=== PATIENT | female | born 1955 | race Caucasian/White ===

== ENCOUNTER 2020-12-17 07:52 | Outpatient (CLI) | payer MEDICARE, SELFPAY ==
[2020-12-17 08:37] LABS: Basophils Percent Auto 0.5 % (0.2-1.2); Eosinophils Absolute Auto 0.2 K/mm3 (0-0.3); Hematocrit 39.8 % (37.0-47.0); Hemoglobin 13.3 g/dL (12.0-15.0); Immature Granulocyte Absolute 0.01 K/mm3 (0.00-0.031); Immature Granulocyte Percent A 0.1 % (0-0.5); Lymphocytes Percent Auto 32.9 % (18.3-44.2); Mean Corpuscular HGB Conc 33.4 g/dl (32-36); Mean Corpuscular Volume 89.6 fl (80-100); Mean Platelet Volume 10.2 fl (7.4-10.4); Monocytes Absolute Auto 0.7 K/mm3 (0.1-0.6); Monocytes Percent Auto 9.2 % (2.6-8.5); Neutrophils Absolute Auto 4.1 K/mm3 (1.3-6.7); Neutrophils Percent Auto 54.3 % (45.5-73.1); Platelet Count Result 248 k/mm3 (150-375); Red Blood Count 4.44 M/mm3 (4.2-5.4); Red Cell Distribution Width 12.4 % (11.5-14.5); White Blood Count 7.6 K/mm3 (4.5-10.0)
[2020-12-17 08:49] LABS: Alanine Aminotransferase 19 U/L (4-35); Albumin Level 4.3 g/dL (3.5-5.1); Alkaline Phosphatase 86 U/L (38-126); Anion Gap 8 mmol/L (8-16); Aspartate Amino Transferase 28 U/L (14-36); Bilirubin,Total 0.5 mg/dL (0.2-1.3); Blood Urea Nitrogen 25 mg/dL (7-17); Calcium 9.1 mg/dL (8.4-10.2); Carbon Dioxide 27 mmol/L (22-30); Chloride 105 mmol/L (98-107); Cholesterol 174 mg/dL (0-200); Estimated Glomerular Filt Rate > 60; Glucose 94 mg/dL (65-110); HDL Direct 72 mg/dL; Potassium 4.7 mmol/L (3.4-5.0); Sodium 140 mmol/L (137-145); Triglycerides 61 mg/dL (<150)
[2020-12-17 09:00] LABS: LDL Cholesterol Direct 82 mg/dL
[2020-12-17 09:06] LABS: Free T4 Free Thyroxine < 0.07 ng/mL (0.78-2.19)
[2020-12-17 09:20] LABS: Thyroid Stimulating Hormone < 0.015 uIU/mL (0.465-4.680); Total Triiodothyronine (T3) 1.92 NG/ML (0.97-1.69)
[2020-12-22 23:39] LABS: Vitamin D 1,25 (OH)2 Total 27 pg/mL (18-72); Vitamin D2 1,25 (OH)2 <8 pg/mL; Vitamin D3 1,25 (OH)2 27 pg/mL
== END 2020-12-17 07:53 | disposition home or self-care (01) ==
PROVIDERS: PCP Family Medicine; Visit Provider Physician Assistant
DX: E55.9 Vitamin D deficiency, unspecified (principal); E03.9 Hypothyroidism, unspecified; E78.2 Mixed hyperlipidemia
CPT/HCPCS: 36415; 80053; 80061; 82652; 84439; 84443; 84480; 85025

== ENCOUNTER 2021-01-26 14:58 | Outpatient (CLI) | payer MEDICARE, SELFPAY ==
--- NOTE | ~2021-01-26 | MM_ITS ---
EXAMINATION: MM screening brii BI w levar HISTORY: Screening TECHNIQUE: Craniocaudal and mediolateral oblique 3-D tomosynthesis images were obtained and synthetic 2-D images were generated. CAD analysis was submitted and interpreted. COMPARISON: No prior mammogram is available for comparison at this institution. BREAST PARENCHYMAL COMPOSITION: The breasts are heterogeneously dense, which may obscure small masses . FINDINGS: There are multiple bilateral breast masses which are partially obscured by fibroglandular t issue. There are no suspicious calcifications or architectural distortion. IMPRESSION: 1. Multiple bilateral breast masses. 2. Bilateral complete breast ultrasound recommended. BI-RADS Category 0: Incomplete: Needs additional imaging evaluation. Reviewed, dictated and finalized at location A. CUTTER
== END 2021-01-26 14:59 | disposition home or self-care (01) ==
LOC: ANHIMG 15:01
PROVIDERS: PCP Family Medicine; Visit Provider Family Medicine
DX: Z12.31 Encounter for screening mammogram for malignant neoplasm of breast (principal); R92.8 Other abnormal and inconclusive findings on diagnostic imaging of breast
CPT/HCPCS: 77063; 77067

== ENCOUNTER 2021-02-04 09:07 | Outpatient (CLI) | payer MEDICARE, SELFPAY ==
--- NOTE | ~2021-02-04 | US_ITS ---
US breast BI complete 02/04/2021 09:48 Indication: Bilateral breast masses seen on recent mammogram. Procedure: High-resolution bilateral breast ultrasound Comparison: Screening mammogram dated 01/26/2021 Findings: There multiple bilateral breast cysts corresponding to the mammographic findings. Largest c yst in the right breast measures 1.4 cm at 9:00, 2 cm from the nipple and largest in the left breast measures 2.5 cm at 12:00, 5 cm from the nipple. No suspicious masses to suggest malignancy in either breast. Impression: 1: Bilateral breast cysts. No sonographic evidence for malignancy. Routine yearly screening mammogram and regular clinical breast examination are recommended. BI-RADS CATEGORY 2 - BENIGN FINDINGS Reviewed, dictated and finalized at location A. [employer]OR OF COLLECTIONS Impression: 1: Bilateral breast cysts. No sonographic evidence for malignancy. Routine yearly screening mammogram and regular clinical breast examination are recommended. BI-RADS CATEGORY 2 - BENIGN FINDINGS
== END 2021-02-04 09:08 | disposition home or self-care (01) ==
LOC: ANHIMG 09:09
PROVIDERS: PCP Family Medicine; Visit Provider Family Medicine
DX: N63.10 Unspecified lump in the right breast, unspecified quadrant (principal); N63.20 Unspecified lump in the left breast, unspecified quadrant; R92.8 Other abnormal and inconclusive findings on diagnostic imaging of breast; N60.02 Solitary cyst of left breast; N60.01 Solitary cyst of right breast
CPT/HCPCS: 76641

== ENCOUNTER 2021-02-15 12:54 | Outpatient (CLI) | payer MEDICARE, SELFPAY ==
--- NOTE | ~2021-02-15 | DEXA_ITS ---
Bone Density Report Name: TENNILLE RAMIREZ Age: 65 Sex: Female Ethnicity: White Date of : 1955 Indication: postmenopausal; Referring Provider: CIRO MCLEAN Study: Bone densitometry was performed. Exam Date: February 15, 2021 Accession number: [id number] Bone Density: Region BMD T-score Z-score Classification AP Spine (L1-L4) 0.902 -1.3 0.6 Osteopenia Femoral Neck (Left) 0.623 -2.0 -0.4 Osteopenia Total Hip (Left) 0.853 -0.7 0.6 Normal Total Hip Bilateral Avg 0.864 -0.7 0.7 Normal Femoral Neck (Right) 0.663 -1.7 -0.1 Osteopenia Total Hip (Right) 0.873 -0.6 0.7 Normal World Health Organization criteria for BMD impression classify patients as: Normal (T-score at or above -1.0), Osteopenia (T-score between -1.0 and -2.5), or Osteoporosis (T-score at or below -2.5). 10-year Fracture Risk(1): Major Osteoporotic Fracture 11% Hip Fracture 1.8% Reported Risk Factors: [place] (), Neck BMD=0.623, BMI=29.2 (1) FRAX(R) Version 3.08. Fracture probability calculated for an untreated patient. Fracture probability may be lower if the patient has received treatment. Clinical Information Provided by Patient: Patient maximum height was 62 Menopause Age: 49 Onset of menses at age 10 Number of children 1 Impression: The patient has low bone mass, based on the Left Femoral Neck T-score. The patient has an estimated ten-year risk of hip fracture of 1.8% and an estimated ten-year risk of major fracture of 11%, based on the WHO FRAX algorithm. Discussion: BONE DENSITY IS LOW AT ONE OR MORE SKELETAL SITES. This patient's lowest T-score is low at one or more skeletal sites. It meets the World Health Organization's (WHO) criteria for ?low bone mass? (T-score between -1.0 and -2.5). The patient's 10-year risk of fracture as calculated by FRAX is less than the threshold where pharmacological therapy is recommended by the National Osteoporosis Foundation (NOF). However, all treatment decisions require clinical judgment and consideration of individual patient factors, including patient preferences, comorbidities, previous drug use, risk factors not captured in the FRAX model (e.g., frailty, falls, vitamin D deficiency, increased bone turnover, interval significant decline in bone density) and possible under or overestimation of fracture risk by FRAX. The patient should follow a healthful lifestyle (good nutrition with adequate calcium and vitamin D, and appropriate weight-bearing exercise). Follow-Up: Consider repeating this study in 2 to 3 years to reassess this patient's status, or sooner if there is some new clinical indication. Reported by: EMILE on 02/15/2021 1:15:00 PM. Reviewed, dictated and finalized at location A. [facility]
== END 2021-02-15 12:55 | disposition home or self-care (01) ==
LOC: ANHIMG 12:55
PROVIDERS: PCP Family Medicine; Visit Provider Family Medicine
DX: Z78.0 Asymptomatic menopausal state (principal); M85.88 Other specified disorders of bone density and structure, other site; M85.852 Other specified disorders of bone density and structure, left thigh; M85.851 Other specified disorders of bone density and structure, right thigh
CPT/HCPCS: 77080

== ENCOUNTER → 2021-09-07 09:37 | Outpatient (CLI) | payer MEDICARE, SELFPAY ==
--- NOTE | ~2021-09-07 | MMUS_ITS ---
EXAMINATION: MM diagnostic brii LT w levar, US breast LT complete HISTORY: Palpable left breast abnormalities TECHNIQUE: Additional 3-D tomosynthesis images of the left breast were performed and synthetic 2-D im ages were generated. CAD analysis was submitted and interpreted. High resolution complete left breast ultrasound was performed. COMPARISON: No prior studies for comparison. BREAST PARENCHYMAL COMPOSITION: The breasts are extremely dense, which lowers the sensitivity of mamm ography FINDINGS: MAMMOGRAPHIC FINDINGS: There are multiple masses of the left breast throughout. The largest discrete mass corresponds to the area of palpable concern. No suspicious calcifications or focal architectural distortion. ULTRASOUND: Complete US of all 4 quadrants of the left breast and retroareolar region was reviewed. There are mul tiple simple and complicated cyst of the left breast, largest at 12:00, 2 cm from the nipple measurin g 2.2 cm maximum dimension. At 3:00, 2 cm from the nipple there is an oval hypoechoic 5 mm mass, like ly a complicated cyst. At 4:00, 4 cm from the nipple there is an oval hypoechoic mass without posteri or features. There is parallel orientation. At 6:00, 1 cm from the nipple is an oval hypoechoic 5 mm mass, likely complicated cysts. Near the areola there is a 7 mm oval hypoechoic mass with parallel or ientation, no internal vascularity and no significant posterior features, likely benign. IMPRESSION: 1. Multiple likely benign left breast masses as described above. There are multiple benign simple and complicated cysts of the left breast corresponding to most of the masses seen on mammography. 2. Recommend 6 month follow-up Limited left breast ultrasound BI-RADS category 3, probably benign findings. Reviewed, dictated and finalized at location L. IMPRESSION: 1. Multiple likely benign left breast masses as described above. There are mult iple benign simple and complicated cysts of the left breast corresponding to mo st of the masses seen on mammography. 2. Recommend 6 month follow-up Limited left breast ultrasound BI-RADS category 3, probably benign findings.
== END ==
PROVIDERS: PCP Family Medicine; Visit Provider Family Medicine
DX: N60.02 Solitary cyst of left breast (principal); N63.25 Unspecified lump in the left breast, overlapping quadrants
CPT/HCPCS: 76641; 77061; 77065; G0279

== ENCOUNTER → 2022-06-27 10:07 | Outpatient (CLI) | payer MEDICARE, SELFPAY ==
--- NOTE | ~2022-06-27 | US_ITS ---
EXAMINATION: US breast LT limited HISTORY: Overdue follow-up for probably benign left breast masses TECHNIQUE: Limited left breast ultrasound was performed. COMPARISON: 09/07/2021, 02/04/2021 FINDINGS: Multiple masses are again noted in the outer left breast. A stable 4 mm hypoechoic mass is present at the 3:00 location 2 cm from the nipple. There is a 4 mm similar-appearing mass at the 4:00 location 4 cm from the nipple. A 9 mm x 5 mm oval, circumscribed, parallel, hypoechoic mass with no posterior features or internal vascularity at the 6:00 location 1 cm from the nipple appears to have slightly increased in size. IMPRESSION: Probably benign left breast masses. Follow-up targeted left breast ultrasound six months is recommend ed. BI-RADS category 3, probably benign findings. Reviewed, dictated and finalized at location A. IMPRESSION: Probably benign left breast masses. Follow-up targeted left breast ultrasound s ix months is recommended. BI-RADS category 3, probably benign findings.
== END ==
PROVIDERS: PCP Family Medicine; Visit Provider Family Medicine
DX: N63.21 Unspecified lump in the left breast, upper outer quadrant (principal)
CPT/HCPCS: 76642

== ENCOUNTER 2023-06-12 09:51 | Outpatient (CLI) | payer MEDICARE, SELFPAY ==
--- NOTE | ~2023-06-12 | MMUS_ITS ---
EXAMINATION: MM diagnostic brii BI w levar, US breast BI complete HISTORY: Follow up of probably benign left breast masses TECHNIQUE: ML, MLO and CC 3-D tomosynthesis images of both breasts were performed and synthetic 2-D i mages were generated. CAD analysis was submitted and interpreted. High resolution bilateral complete breast ultrasound examination coronal 4 quadrants and subareolar areas was performed. COMPARISON: Serial mammogram and ultrasound examinations dating back to 01/26/2021 BREAST PARENCHYMAL COMPOSITION: The breasts are heterogeneously dense, which may obscure small masses . FINDINGS: MAMMOGRAPHIC FINDINGS: There are multiple waxing and waning circumscribed opacities of variable size over serial examination s, particularly numerous on the left on the current examination, the largest measuring up to approxim ately 17 mm. The findings are most consistent with benign cysts. There is a minimally peripherally calcified benign oil cyst in the posterior upper inner right breast . No apparent suspicious mammographic mass, architectural distortion, malignant calcification, skin thi ckening or retraction is detected. ULTRASOUND: Right breast: 12:00 6 cm from nipple: 3.8 x 2.8 x 3.3 mm hypoechoic lesion without internal vascularity or posterio r features 12:00 5 cm from nipple: Parallel circumscribed sonolucency measuring 3.8 x 7.6 x 7.5 mm, with through transmission posterior enhancement, no internal vascularity, consistent with simple cyst 12:00 4 cm from nipple: 5.3 x 3.2 x 6.3 mm simple cyst 12:00 3 cm from nipple: 8.5 x 5.2 x 8.7 mm simple cyst 1:00 6 cm from nipple: 4.5 x 2.9 x 4.7 mm circular hypoechoic lesion without internal vascularity but with posterior shadowing 1:00 5 cm from nipple: Mildly irregular in completely circumscribed 11 x 9 x 10.5 mm hypoechoic mass without internal vascularity, with some posterior shadowing 2:00 3 cm from nipple: 5.9 x 4.8 x 5.2 mm circumscribed hypoechoic lesion without internal vascularit y or posterior shadowing 3:00 4 cm from nipple: Circumscribed 2.9 x 3.1 mm hypoechoic lesion without internal vascularity or p osterior shadowing 3:00 subareolar area: 5.7 x 4.5 x 5.9 mm circumscribed hypoechoic lesion without internal vascularity or posterior shadowing 4:00 subareolar area:: 3.2 x 5.2 mm circumscribed sonolucency with through transmission, consistent w ith simple cyst 5:00 4 cm from nipple: 4.5 x 2.7 x 4.8 mm circumscribed sonolucency with through transmission, likely benign 6:00 4 cm from nipple: 3.4 mm rounded mildly irregular solid lesion with adjacent vascularity, no pos terior shadowing. 7:00 4 cm from nipple: Parallel circumscribed hypoechoic lesion measuring 2.6 x 7.7 x 6 mm, without i nternal vascularity or posterior shadowing 9:00 7 cm from nipple: 6.6 x 8.5 mm cyst with through transmission posterior enhancement 9:00 7 cm from nipple: 4.9 x 5.2 mm cyst 9:00 4 cm from nipple: Approximately 1.2 x 1.8 cm septated cyst 10:00 7 cm from nipple: 6 mm probable cyst Subareolar 4.8 x 3.6 mm cyst Left breast: 12:00 4 cm from nipple: Multi septated 6.5 x 14 mm cyst 12:00 2 cm from nipple: There are multiple circular and oval hypoechoic lesions, measuring up to 11 m m 12:00 subareolar area up to 15 mm cysts 1:00 2 cm from nipple: 5.6 x 5.8 x 3.4 mm cyst 2:00 5 cm from nipple: Adjacent 7.5 and 3.4 mm cysts 2:00 4 cm from nipple: 5.4 mm circumscribed hypoechoic lesion without internal vascularity or posteri or shadowing 2:00 subareolar area: 11 x 5 mm cyst with through transmission posterior enhancement 3:00 4 cm from nipple: 12 x 6 mm cyst and adjacent 4.2 x 4.4 x 3.7 mm hypoechoic area without interna l vascularity or posterior shadowing 4:00 5 cm from nipple: 3.4 mm hypoechoic solid lesion with internal vascularity, with no posterior sh adowing 4:00 4 cm from nipple: 4.3 x 5.3 mm cyst and 3.2 x 4 mm cyst 7:00 4 cm from nipple: 2. 74.9 mm cyst
== END 2023-06-12 09:52 ==
LOC: MICIMG 09:52
PROVIDERS: PCP Family Medicine; Visit Provider Family Medicine
DX: R92.8 Other abnormal and inconclusive findings on diagnostic imaging of breast (principal); N63.20 Unspecified lump in the left breast, unspecified quadrant; N63.10 Unspecified lump in the right breast, unspecified quadrant
CPT/HCPCS: 76641; 77062; 77066; G0279

== ENCOUNTER 2023-12-11 09:45 | Outpatient (CLI) | payer MEDICARE, SELFPAY ==
--- NOTE | ~2023-12-11 | MMUS_ITS ---
EXAMINATION: MM diagnostic brii BI w levar, US breast BI complete HISTORY: Follow-up bilateral breast masses TECHNIQUE: Additional 3-D tomosynthesis images of the breasts were performed and synthetic 2-D images were generated. CAD analysis was submitted and interpreted. High resolution bilateral complete breas t ultrasound was performed. COMPARISON: Comparison to multiple prior studies sequentially, with oldest reviewed study dated 05/2017. BREAST PARENCHYMAL COMPOSITION: Dense: The breasts are heterogeneously dense, which may obscure small masses FINDINGS: MAMMOGRAPHIC FINDINGS: There are developing masses in the upper outer quadrant of the right breast and scattered throughout the left breast. There are benign renal cysts of the breasts bilaterally. ULTRASOUND: Complete US of all 4 quadrants of the breast/s and retroareolar region was reviewed. Right breast: There are multiple cysts of the right breast. At 1:00, 5 cm from the nipple there is a hypoechoic round mass with slightly irregular margins measuring 10 x 10 x 11 mm compared with 11 x 9 x 11 mm on prior examination. Given the lack of interval change is is likely benign. No internal vasc ularity or posterior shadowing. At 2:00, 3 cm from the nipple there is a slightly irregular shaped hy poechoic 5 mm mass without significant change from prior examination. At 8:00, 4 cm from the nipple t here is an oval circumscribed hypoechoic mass measuring 1.2 x 0.5 x 0.7 cm with heterogeneous interna l echotexture. This mass is slightly larger than on prior examination. No internal vascularity. At 9: 00, 5 cm from the nipple there is an oval hypoechoic mass measuring 7 x 7 x 8 mm without internal vas cularity or posterior features. No significant interval change. At 9:00, 4 cm from the nipple there i s a new cystic mass with hypoechoic irregular rim measuring up to 1.7 cm. This is likely a minimally complicated cyst. At 10:00, 5 cm from the nipple there is an antiparallel hypoechoic mass measuring 6 x 5 x 5 mm with posterior shadowing and no internal vascularity, without significant change from chey or examination. Left breast: There are multiple cysts of the left breast. At 2:00, 4 cm from the nipple there is an i ntramammary lymph node measuring 8 mm. At 4:00, 4 cm from the nipple there is an oval hypoechoic mass measuring 5 x 4 x 5 mm without significant change from prior examination line for technique. At 10:0 0, 6 cm from the nipple there is a hypoechoic 6 mm mass which is round without internal vascularity. There is posterior shadowing. This is not significantly changed from prior examination. At 10:00, 4.5 cm from the nipple there is a 4 mm hypoechoic mass which is not significantly changed from prior exa mination allowing for differences of technique. At 11:00, 6 cm from the nipple there is a 4 mm hypoec hoic mass without internal vascularity. The margins are slightly irregular. This mass appears slightl y decreased in size compared with prior examination, likely benign. Near the nipple there is an oval hypoechoic 6 mm mass unchanged. IMPRESSION: 1. Stable likely benign bilateral breast masses. 2. Recommend 6 month follow-up bilateral breast ultrasound recommended. BI-RADS category 3, probably benign findings. Reviewed, dictated and finalized at location B. IMPRESSION: 1. Stable likely benign bilateral breast masses. 2. Recommend 6 month follow-up bilateral breast ultrasound recommended. BI-RADS category 3, probably benign findings.
== END 2023-12-11 09:46 | disposition home or self-care (01) ==
LOC: MICIMG 09:46
PROVIDERS: PCP Family Medicine; Visit Provider Family Medicine
DX: R92.8 Other abnormal and inconclusive findings on diagnostic imaging of breast (principal); N63.10 Unspecified lump in the right breast, unspecified quadrant; N63.20 Unspecified lump in the left breast, unspecified quadrant
CPT/HCPCS: 76641; 77062; 77066; G0279

== ENCOUNTER 2024-05-12 14:50 | Outpatient (CLI) | payer MEDICARE, SELFPAY ==
--- NOTE | ~2024-05-12 | DEXA_ITS ---
Bone Density Report Name: TENNILLE RAMIREZ Age: 68 Sex: Female Ethnicity: White Date of : 1955 Indication: osteopenia; Referring Provider: UNKNOWN, UNKNOWN Study: Bone densitometry was performed. Exam Date: May 12, 2024 Accession number: [id number] Bone Density: Region BMD T-score Z-score Classification AP Spine(L1-L4) 0.899 -1.3 0.8 Osteopenia Femoral Neck (Left) 0.625 -2.0 -0.2 Osteopenia Total Hip (Left) 0.848 -0.8 0.7 Normal Femoral Neck (Right) 0.647 -1.8 0.0 Osteopenia Total Hip (Right) 0.877 -0.5 1.0 Normal Total Hip Mean 0.863 -0.7 0.9 Normal World Health Organization criteria for BMD impression classify patients as: Normal (T-score at or above -1.0), Osteopenia (T-score between -1.0 and -2.5), or Osteoporosis (T-score at or below -2.5). 10-year Fracture Risk(1): Major Osteoporotic Fracture 11% Hip Fracture 2.0% Reported Risk Factors: [place] (), Neck BMD=0.625, BMI=28.3 (1) FRAX(R) Version 3.08. Fracture probability calculated for an untreated patient. Fracture probability may be lower if the patient has received treatment. Previous Exams: Region Exam Age BMD T-score BMD Change BMD Change Date g/cm2 vs Baseline vs Previous AP Spine (L1-L4) 05/12/2024 68 0.899 -1.3 -0.003 (-0.3%) -0.003 (-0.3%) 02/15/2021 65 0.902 -1.3 Total Hip(Left) 05/12/2024 68 0.848 -0.8 -0.005 (-0.6%) -0.005 (-0.6%) 02/15/2021 65 0.853 -0.7 Total Hip(Right) 05/12/2024 68 0.877 -0.5 0.005 (0.5%) 0.005 (0.5%) 02/15/2021 65 0.873 -0.6 *Denotes significance at 95% confidence level, LSC for AP Spine = 0.022 g/cm2, LSC for Total Hip = 0.027 g/cm2 Clinical Information Provided by Patient: Has used the following medications: HRT (i.e. estrogen/hormone therapy), Vitamin D Patient maximum height was 61.0 Menopause Age: 49 Drinks caffeinated beverages Onset of menses at age 10 Number of children 1 Impression: The patient has low bone mass, based on the Left Femoral Neck T-score. The patient has an estimated ten-year risk of hip fracture of 2% and an estimated ten-year risk of major fracture of 11%, based on the WHO FRAX algorithm. No significant bone loss was observed. Discussion: BONE DENSITY IS LOW AT ONE OR MORE SKELETAL SITES. This patient's lowest T-score is low at one or more skeletal sites. It meets the World Health Organization's (WHO) criteria for ?low bone mass? (T-score between -1.0 and -2.5). The patient's 10-year risk of fracture as calculated by FRAX is less than the threshold where pharmacological therapy is recommended by the National Osteoporosis Foundation (NOF). However, all treatment decisions require clinical judgment and consideration of individual patient factors, including patient preferences, comorbidities, previous drug use, risk factors not captured in the FRAX model (e.g., frailty, falls, vitamin D deficiency, increased bone turnover, interval significant decline in bone density) and possible under or overestimation of fracture risk by FRAX. The patient should follow a healthful lifestyle (good nutrition with adequate calcium and vitamin D, and appropriate weight-bearing exercise). Follow-Up: Consider repeating this study in 2 to 3 years to reassess this patient's status, or sooner if there is some new clinical indication. Reported by: TREV on 05/12/2024 3:22:00 PM. Reviewed, dictated and finalized at location [facility]
--- OUTSIDE RECORDS SUMMARY | 2024-05-12 17:13 | XMS_ITS | Encounter Summary ---
Author Organization [facility] Healthcare Address [address] [place] [address] Care Team Providers Care Telecommunications Linesworker Name Role Phone Unavailable Primary Care Provider Unavailabl e Reason for Visit * Diagnostic Imaging (Routine) - Closed Specialty Diagnoses / Procedures Referred By Wilver t Referred To Contact Procedures Breast Imaging Screening Outside Reference Elana Chowdhury MD PhD [address] [facility] [id number] [place] [address] Phone: tel: fax: Referral ID Status Reason Start Date Expiration Date Visits Re quested Visits Authorized [id number] Closed 10/12/2021 11/11/2022 1 1 Encounter Details Date Type Department Care Team (Late st Contact Info) Description 10/23/2019 Hospital Encounter [facility] [address] [place] [address] Social History Tobacco Use Types Packs/Day Years Used Date Smoking Tobacco: Never Passive Smoke Exposure: Never Smokeless Tobacco: Never Humiliation, Afraid, Rape, and Kick questionnair e Answer Date Recorded Within the last year, have y ou been afraid of your partner or ex-partner? No 05/14/2023 Within the last year, have y ou been humiliated or emotionally abused in other ways by your partner or ex-partner? No Within the last year, have y ou been kicked, hit, slapped, or otherwise physically hurt by your partner or ex-partner? No 05/14/2023 Within the last year, have y ou been raped or forced to have any kind of sexual activity by your partner or ex-partner? No 05/14/2023 AUDIT-C Answer Date Recorded Q1: How often do you have a drink containing alc ohol? 2-4 times a month 12/28/2022 Q2: How many drinks containi ng alcohol do you have on a typical day when you are drinking? 1 or 2 12/28/2022 Q3: How often do you have si x or more drinks on one occasion? Never 12/28/2022 PHQ-2 Answer Date Recorded PHQ-2 Total Score (If total score is 3 or more points, staff should administer the PHQ-9) 0 03/26/2024 Personal Safety Answer Date Recorded Have you ever been in or are you currently in a harmful physical or emotional relationship or is someone making you feel afraid or unsafe? Denies 12/28/2022 Education Answer Date Recorded What is the highest level of school you have completed or the highest degree you have received? 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 No 05/14/2023 1:47 PM Luann Burrell MD Within the last year, have you been afraid of your partner or ex-partner? No 05/14/2023 1:47 PM ORIT Pedrito Payne MD Within the last year, have you been raped or forced to have any kind of sexual activity by your partner or ex-partner? No 05/14/2023 1:47 PM Luann Burrell MD Within the last year, have you been kicked, hit, slapped, or otherwise physically hurt by your partner or ex-partner? No 05/14/2023 1:47 PM CDT Pedrito Payne MD * Question Answer Date of Assessment Author Q1: How often do you have a drink containing alcohol? 2-4 times a month 12/28/2022 10:32 AM Joan Crouch RN Q2: How many drinks containing alcohol do you have on a typical day when you are drinking? 1 or 2 12/28/2022 10:32 AM Joan Crouch RN Q3: How often do you have six or more drinks on one occasion? Never 12/28/2022 10:32 AM Joan Crouch RN documented as of this encounter Plan of Treatment Not on file documented as of this encounter Procedures Procedure Name Priority Date/Time Associated Diagnosis Comments BREAST IMAGING MG SCREENING OUTSIDE REFERENCE Routine 10/23/2019 12:00 AM CDT documented in this encounter Results * Breast Imaging Screening Outside Reference (10/23/2019 12:00 AM CDT) Impressions [facility] - 10/12/2021 12:47 PM CDT These images are for Reference purposes only and have not been reviewed by [facility] Radiology. There will be no report generated by a [facility] Radiologist. Narrative [facility] - 10/12/2021 12:47 PM CDT EXAMINATION: Images For Reference Purposes Only Elana Chowdhury MD PhD IMG MAMMO PROCEDURES Final Result [facility] documented in this encounter Visit Diagnoses Not on filedocumented in this encounter
--- OUTSIDE RECORDS SUMMARY | 2024-05-12 17:13 | XMS_ITS | Encounter Summary ---
Author Organization [facility] Healthcare Address [address] [place] [address] Care Team Providers Care Order Filler Name Role Phone Unavailable Primary Care Provider Unavailabl e Reason for Visit * Diagnostic Imaging (Routine) - Closed Specialty Diagnoses / Procedures Referred By Wilver t Referred To Contact Procedures Breast Imaging US Outside Reference Elana Chowdhury MD PhD [address] [facility] [phone] [place] [address] Phone: tel: fax: Referral ID Status Reason Start Date Expiration Date Visits Re quested Visits Authorized [id number] Closed 10/12/2021 11/11/2022 1 1 Encounter Details Date Type Department Care Team (Late st Contact Info) Description 06/05/2016 12:05 AM CDT Hospital Encounter [facility] [address] [place] [address] Social History Tobacco Use Types Packs/Day Years [...] Master's degree (e.g., MA, MS, Melania, MEd, ACCOUNT SERVICES MANAGER, JAIME) 04/28/2021 Comments No Sex and Gender [...] Priority Date/Time Associated Diagnosis Comments BREAST IMAGING US OUTSIDE REFERENCE Routine 06/05/2016 12:05 AM CDT documented in this encounter Results * Breast Imaging US Outside Reference (06/05/2016 12:05 AM CDT) Impressions [facility] - 10/12/2021 12:48 PM CDT These images are for Reference purposes only and have not been reviewed by [facility] Radiology. There will be no report generated by a [facility] Radiologist. Narrative [facility] - 10/12/2021 12:48 PM CDT EXAMINATION: Images For Reference Purposes Only Elana Chowdhury MD PhD IMG MAMMO PROCEDURES Final Result [facility] documented in this encounter Visit Diagnoses Not on filedocumented in this encounter
--- OUTSIDE RECORDS SUMMARY | 2024-05-12 17:13 | XMS_ITS | Encounter Summary ---
Author Organization [facility] Healthcare Address [address] [place] [address] Care Team Providers Care Local Area Network Systems Adminstrator Name Role Phone Unavailable Primary Care Provider Unavailabl e Reason for Visit * Diagnostic Imaging (Routine) - Closed Specialty Diagnoses / Procedures Referred By Wilver t Referred To Contact Procedures Breast Imaging Diagnostic Outside Reference Elana Chowdhury MD PhD [address] [facility] [phone] [place] [address] Phone: tel: fax: Referral ID Status Reason Start Date Expiration Date Visits Re quested Visits Authorized [id number] Closed 10/12/2021 11/11/2022 1 1 Encounter Details Date Type Department Care Team (Late st Contact Info) Description 06/05/2016 Hospital Encounter [facility] [address] [place] [address] Social History Tobacco Use Types Packs/Day Years [...] Master's degree (e.g., MA, MS, Melania, MEd, SUPERVISOR ALTERATION WORKROOM, JAIME) 04/28/2021 Comments No Sex and Gender [...] or ex-partner? No 05/14/2023 1:47 PM ORIT Luann Payne MD Within the last year, have [...] Date/Time Associated Diagnosis Comments BREAST IMAGING MG DIAGNOSTIC OUTSIDE REFERENCE Routine 06/05/2016 12:00 AM CDT documented in this encounter Results * Breast Imaging Diagnostic Outside Reference (06/05/2016 12:00 AM CDT) Impressions [facility] - 10/12/2021 12:46 PM CDT These images are for Reference purposes only and have not been reviewed by [facility] Radiology. There will be no report generated by a [facility] Radiologist. Narrative [facility] - 10/12/2021 12:46 PM CDT EXAMINATION: Images For Reference Purposes Only Elana Chowdhury MD PhD IMG MAMMO PROCEDURES Final Result [facility] documented in this encounter Visit Diagnoses Not on filedocumented in this encounter
--- OUTSIDE RECORDS SUMMARY | 2024-05-12 17:13 | XMS_ITS | Clinical Summary ---
Author Organization [facility] Address [address] [place] [id number] Care Team Providers Care Pbx Wire Chief Name Role Phone Josh Pugh DC Unavailable [phone] Jarod Pereira MD Primary Care Provider Leonard Russell DO Unavailable [phone] Luann Payne MD Unavailable [phone] Allergies Active Allergy Reactions Criticality Noted Date Comments Grass Pollen Cough Low 07/12/2022 Latex Rash Medium 11/15/2020 Contact dermatitis Penicillins Rash Medium 11/15/2020 Contact dermatitis Medications inzautor-eos-pr lic acid-vit K 400-80 mcg capsule Take by mouth Active cycloSPORINE (RESTASIS) 0.05 % ophthalmic emulsionIndicat ions:Keratoconj unctivitis sicca,Dry eye syndrome of both eyes Administer 1 drop into both eyes 2 (two) times a day 60 each 11 4 Active levothyroxine (SYNTHROID) 75 mcg tablet Take 1 tablet (75 mcg total) by mouth solar sales representative before breakfast 30 tablet 5 4 Active acyclovir (ZOVIRAX) 400 mg tablet TAKE 1 TABLET(400 MG) BY MOUTH EVERY MORNING 100 tablet 1 5 Active tretinoin (RETIN-A) 0.025 % cream 5 Active spironolactone (ALDACTONE) 25 mg tablet Take 1 tablet (25 mg total) by mouth daily 30 tablet 2 5 Active estrogens, conjugated, (PREMARIN) vaginal cream Apply nightly to vagina for 1 week, then Sunday// Sunday 42.5 g 6 5 11/27/19 25 Active estradioL (ESTRACE) 0.01 % (0.1 mg/gram) vaginal cream Apply nightly to vagina for 1 week, then Sunday// Sunday 42.5 g 5 5 12/08/19 25 Active Active Problems Problem Noted Date Diagnosed Date Post-menopause 01/27/2024 Assessment & Plan (01/27/2024 8:47 PM GRIEVANCE AND APPEALS COORDINATOR): - Due for DEXA scan - Check vitamin-D hydroxy - Recommend supplementation with calcium 1200 mg + vitamin-D 800 IU daily - Continue routine weight-bearing exercise Body mass index (BMI) of 27.0-27.9 in adult 09/2023 Assessment & Plan (02/18/2024 1:13 PM GRIEVANCE AND APPEALS COORDINATOR): She is worried about insulin resistant Will check insulin level To [id number] To berberine Assessment & Plan (01/27/2024 8:50 PM GRIEVANCE AND APPEALS COORDINATOR): - request to restart phentermine as she had recently been on this with good response - Close to ideal BMI - Re-evaluate in 4 weeks Well woman exam 05/14/2023 Overview (05/14/2023): Lab: Pap: all normal Labs with pcp Flip:due Colonoscopy:12/2022- she is not sure when she is to come back BMD:due Assessment & Plan (02/18/2024 1:12 PM GRIEVANCE AND APPEALS COORDINATOR): Complete exam due in 04/2024 Assessment & Plan (05/14/2023 1:35 PM CDT): Complete exam done today Family history of breast cancer 05/14/2023 Overview (05/14/2023): M- age 41 May have been only cystic breast. Small family She did 23 and me and was negative. We discussed the limitations. Assessment & Plan (02/18/2024 1:15 PM GRIEVANCE AND APPEALS COORDINATOR): She is interested in going to [place] to the [facility] Assessment & Plan (05/14/2023 2:56 PM CDT): M- age 41 May have been only cystic breast. Small family She did 23 and me and was negative. We discussed the limitations. Dyspareunia in female 05/14/2023 Assessment & Plan (02/18/2024 1:10 PM GRIEVANCE AND APPEALS COORDINATOR): To vaginal estrogen Use reviewed To decide about dilators Assessment & Plan (05/14/2023 2:58 PM CDT): Options discussed Can increase the estrogen cream to three times a week To get adequate foreplay We discussed dilators and she declines at this time. Hormone replacement therapy (HRT) 05/14/2023 Assessment & Plan (02/18/2024 1:11 PM GRIEVANCE AND APPEALS COORDINATOR): She has stopped her meds Will repeat free and total testosterone Assessment & Plan (05/14/2023 3:00 PM CDT): We dicussed the current recommendation to stop at age 60 secondary to increase risk of heart complications She can discuss further with the group that prescribed it. I feel comfortable with giving her vaginal estrogen as there is minimal systemic absorption. Encounter for screening colonoscopy 10/20/2022 Cough 07/12/2022 Assessment & Plan (07/12/2022 11:54 AM CDT): Montelukast trial, may add daily Flonase if not improving with the Singulair and Claritin PRN albuterol for coughing fits, to avoid issues during exercise (take 30 minutes prior to exercise) Continue PRN benzonatate History of refractive surgery 02/25/2022 Assessment & Plan (05/01/2022 3:27 PM CDT): One month PO PRK Patient reports good vision No discomfort +2.50 readers, will try lower reading power for intermediate [facility] Return in 2 months Assessment & Plan (04/10/2022 3:45 PM GRIEVANCE AND APPEALS COORDINATOR): PRK healing Removed bandage CL OD - Combination drop: moxifloxacin/prednisolone acetate 1% - 4 times a day for 1 week, then 2 times a day for 1 week - Ketorolac - 4 times a day for 4 days - Artificial tears - as needed Return in 3 weeks Assessment & Plan (03/20/2022 2:51 PM GRIEVANCE AND APPEALS COORDINATOR): PRK healing OS 20/30 UCVA, Patient is ready to have surgery to OD. Notes slight blur to OS, but vision is functional Anterior swirl of epithelium on corneal surface from limbal surface in left eye. Will continue to monitor Patient to return for surgery to OD at her convenience. Continue ointment and art tears. Assessment & Plan (02/27/2022 8:44 AM GRIEVANCE AND APPEALS COORDINATOR): 5 Day PO PRK PRK healing Small epithelial filament OS, removed with sterile Qtip No signs of infection Removed bandage contact lens Continue Pred/moxi QID until 7 days PO, then BID for one week, then discontinue Return in 3 weeks Start Oscar 128 ointment at night Continue Sun Rx Discussed activities Assessment & Plan (02/25/2022 9:29 AM GRIEVANCE AND APPEALS COORDINATOR): Three Day Post-Op PRK Epithelium healing, 60% No signs of infection or inflammation Continue Ketorolac QID until 4 days PO Continue moxifloxacin/prednisilone acetate 1% QID Artificial tears PRN Return for 5 day Post-op Visit Discussed limitations in activities and precautions Encounter for Medicare annual wellness exam 11/19 Assessment & Plan (01/27/2024 8:43 PM GRIEVANCE AND APPEALS COORDINATOR): - Mammogram (10/12/2021): BI-RADS Category 2: Benign- overdue for repeat mammogram; repeat mammogram orders already in place- instructed to call to schedule - Continue routine well-woman care/Pap as per transmission design engineer - Colonoscopy (12/28/2022): Negative for polyps; repeat colonoscopy due in 5 years Assessment & Plan (12/11/2022 3:38 PM CDT): A(n) yearly Medicare Annual Wellness Visit has been performed today. Latosha Zuluaga is not up to date on screening tests. She is in need of Breast cancer screening and Colon cancer screening. She is not up to date on needed preventative vaccinations; She is in need of Influenza and Covid-19 (booster). We discussed healthy lifestyle habits, educational material has been given. Medications reviewed, changes documented as per the medical record and discussed with patient along with risks vs benefits. Return in 6 months Assessment & Plan (12/03/2021 2:40 PM CDT): A(n) initial Medicare Annual Wellness Visit has been performed today. Latosha Zuluaga is not up to date on screening tests. She is in need of Colon cancer screening. She is not up to date on needed preventative vaccinations; She is in need of Influenza. BP is a bit soft today; keep an eye on it at home of course For now, continuing current regimen Exercise contraindicated while eye problem is still being addressed. Discussed diet. I would be curious how you'd do with intermittent fasting for a couple months, to get away from current low-carb/keto a bit (as your physiology has adapted)-- if you are not seeing results in a 6-8 week period, let us know and we'll revisit Mounjaro/Wegovy-like meds. Calorie counting efforts can continue (it would be good to gauge against BMR, or Basal Metabolic Rate-- I've added my handout on that as well) Will hold phentermine for another 2 months. Also discussed newer ones like Wegovy and Mounjaro Pseudophakia of both eyes 11/23/2021 Assessment & Plan (06/19/2023 2:03 PM CDT): 14 month PO PRK OU Cataract surgery September 2021 Blurred vision OS with increase halos at night time Mac OCT normal OU Mild capsular fibrosis OU, OS greater than OD Did not recommend PRK enhancement surgery Recommend consultation with cataract surgeon to evaluate capsular fibrosis Discussed possible capsulotomy procedure Assessment & Plan (11/29/2021 1:32 PM CDT): POW #1 s/p CE/PCIOL OD - Doing well - D/C ofloxacin in 1 week - Taper prednisolone QID -> TID -> BID -> qday, per week - Reviewed signs/symptoms endophthalmitis, RT/RD; patient to call immediately if any worsening vision, pain, redness, flashes/floaters/curtains. - Okay to resume all activities, except refrain from swimming for one more week. Okay to discontinue Dorman shield at night. - RTC 1-2 weeks for MRx Discussed with patient that I would recommend evaluation for PRK/refractive procedure to correct residual astigmatism OD. 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 Discussed that we would like to make sure there is no change in her MRx, so okay to RTC in 1 week for MRx. If similar to today okay to update. Assessment & Plan (11/23/2021 8:58 AM CDT): POD #1 s/p CE/PCIOL OD - Doing well - Prednisolone QID OD - Ofloxacin QID OD - Reviewed signs/symptoms endophthalmitis, RT/RD; patient to call immediately if any worsening vision, pain, redness, flashes/floaters/curtains - No lifting/bending/swimming. Domran shield while sleeping, protective eyewear during day. - RTC 1 week Nuclear sclerotic cataract of right eye 10/11/19 Major depressive disorder, recurrent, mild 06/09 Major depressive disorder, recurrent, moderate 0 06/09/2021 Major depressive disorder, recurrent, unspecifie d 06/09/2021 Assessment & Plan (06/12/2021 5:08 PM CDT): Will increase Lexapro to 20 mg daily Considering if we may need to alter or add adjunct (we'll see) BP is borderline today (phentermine?) The phenterimine is working thus far, however Meibomian gland dysfunction (MGD) of both eyes 0 05/09/2021 Assessment & Plan (05/09/2021 1:18 PM CDT): Add hot compresses with lid scrubs to alleviate crusting of lashes and improve meibomian gland dysfunction (MGD). Recommend trail of lubricant eye drops 4 times/day. If still symptomatic,consider lid scrubs with Johnsons baby shampoo or with Ocusoft scrubs. Encounter for medical examination to establish c are 04/28/2021 Assessment & Plan (04/28/2021 1:11 PM GRIEVANCE AND APPEALS COORDINATOR): A initial well visit to establish care has been performed today. Latosha Zuluaga is not up to date on screening tests. She is in need of DEXA, Breast cancer screening, hepatitis c screening and Colon cancer screening- these have been ordered. She is not up to date on needed preventative vaccinations; She is in need of Tdap/Td, Influenza, Pneumonia (Prevnar-13 or Pneumovax-23) and Zoster. These have been ordered/arranged unless otherwise indicated. Facial pain 10/30/2017 Fatigue 10/30/2017 Loss of weight 11/23/2011 Thyroid activity decreased 11/23/2011 Assessment & Plan (01/27/2024 8:45 PM GRIEVANCE AND APPEALS COORDINATOR): - Most recent TSH 2.35 - Continues on Cytomel- receiving care for this at [facility]- request repeat full thyroid panel Assessment & Plan (06/08/2022 9:10 AM CDT): Patient taking Cytomel per [facility] and states she recently had labs drawn 02/2022. Will still want updated labs from us, pt can send over results to us though from the February visit. Malaise and fatigue 08/16/2007 Enthesopathy of hip region 11/03/2005 Symptomatic menopausal or female climacteric sta gerber 04/06/2005 Tinnitus 12/25/2003 Overview (10/21/2021): Right ear Achilles tendinitis 06/26/2002 Resolved Problems Problem Noted Date Diagnosed Date Resolved Date BMI 25.0-25.9,adult 04/04/2022 02/18/20 24 Assessment & Plan (05/14/2023 3:02 PM CDT): We discussed at length what she is doing to loose weight Based on her am weight, she is technically in the normal range. She would like to be lower Will continue to work with Dr. Pereira on thyroid Assessment & Plan (10/25/2022 9:03 AM CDT): Has been off of Phentermine for 3 months, will restart to held aid efforts of weight loss. Her goal is 125-130 lbs. No side effects of medication in the past. Assessment & Plan (06/08/2022 9:04 AM CDT): Patient is down 13 lbs total from 04/04/22 Assessment & Plan (05/11/2022 1:57 PM CDT): Down 7 lbs since starting the Phentermine x 6 weeks ago. Tolerating well, no noted side effects. Notes to have hit a plateau, discussed different ways to shake things up and to try and stay positive. Reassurance provided that plateaus are normal in weight loss. Assessment & Plan (04/04/2022 10:23 AM GRIEVANCE AND APPEALS COORDINATOR): Discussed having a healthier relationship with food and exercise, with the over exercising and low calorie intake I am suspicious that this is thwarting her efforts. Discussed throttling back on the exercise and shooting more for around the 1380 calorie range with healthy carbohydrates for exercise. Increasing water to 1 gallon per day to replenish what she is losing with her exercise. Will trial Phentermine again at 30 mg this time as she didn't see any difference with the 15 mg previously. Measurements: Chest (in): 35 Waist (in): 34.75 Hips (in): 35 Follow up in 6 weeks Mixed astigmatism 02/09/2022 09/19/2023 Assessment & Plan (02/20/2022 3:46 PM GRIEVANCE AND APPEALS COORDINATOR): Mixed astigmatism Irregular astigmatism Previous LASIK Surgery OU 2002 Cataract surgery September 2021, OS first Toric IOL OS Spherical IOL OD ABMD OU No indications of keratectasia PRK Surgery, one eye at a time, OS First Discussed PRK surgery, longer healing time, and discomfort. Discussed risk of corneal haze, off label use of mitomycin C, sunglasses and vitamin C. Discussed risk of infection and activities following surgery. Discussed post-operative symptoms of nighttime glare and dryness after surgery Discussed reading glasses after surgery PRK OU, OS first Distance OU In house S/P cataract extraction and insertion of intraocular lens, left 09/29/2021 09/19/2023 Assessment & Plan (12/08/2021 1:53 PM CDT): Referred by Dr. Dye for MRx only. Okay to release updated SRx today - pt understands considering recent CEIOL SRx may change. Discussed option of bifocal vs trifocal. Pt scheduled for refractive surgery enhancement evaluation in January. Assessment & Plan (11/14/2021 5:16 PM CDT): -pt overall happy with vision. MRx today with residual cylinder near +1.75D and toric axis at 121. Will determine possible need for rotation and repeat testing to assess for any changes in magnitude of cylinder prior to proceeding with toric OS. Discussed residual cylinder with patient and because of this we will delay surgery OD as she undergoes repeat testing. While she notes improvement with MRx her subjective improvement is not to the degree I would expect with ~2D of residual cylinder, which may be related to prior amblyopia component. Assessment & Plan (11/04/2021 4:10 PM CDT): PH9Etdhbtule extraction (CE)/posterior chamber intraocular lens (PCIOL) Toric axis where intended The posterior chamber intraocular lens (PCIOL) is in good position, intraocular pressure (IOP) normotensive Continue Pred every day (QD) left eye (OS) x 1 week then STOP. NO retinal holes/tears/detachments noted in either eye. Educated on photopsia related to intraocular lens (IOL) reflection, which is improving. Scheduled for cataract extraction (CE)/PCIOL right eye (OD) in coming weeks, RTC as sched or sooner prn. Assessment & Plan (10/04/2021 10:11 AM CDT): POW #1 s/p CE/PCIOL OS - Doing well - D/C ofloxacin in 1 week - Taper prednisolone QID -> TID -> BID -> qday, per week - Reviewed signs/symptoms endophthalmitis, RT/RD; patient to call immediately if any worsening vision, pain, redness, flashes/floaters/curtains. - Okay to resume all activities, except refrain from swimming for one more week. Okay to discontinue Dorman shield at night. - RTC 1 month for DFEx, MRx Assessment & Plan (09/30/2021 1:00 PM CDT): PO1D cataract extraction (CE)/posterior chamber intraocular lens (PCIOL) left eye (OS) Toric [place] where intended (125) The posterior chamber intraocular lens (PCIOL) is in good position, intraocular pressure (IOP) normotensive Stressed importance of Ofloxacin and Pred QID left eye (OS) Educated on restrictions- no lifting/bending and to wear shield when sleeping. Will call with any new/worsening symptoms RTC as sched 1 wk or sooner prn Dermatochalasis of eyelids of both eyes 05/09/2021 09/19/2023 Assessment & Plan (05/09/2021 1:19 PM CDT): -pt complains of intermittent diplopia Dermatochalasis of both upper eyelids 05/09/2021 09/19/2023 Class 1 obesity due to exces s calories without serious comorbidity with body mass index (BMI) of 30.0 to 30.9 in adult 04/28/2021 Assessment & Plan (04/29/2021 6:31 PM GRIEVANCE AND APPEALS COORDINATOR): BMI Follow-up includes: nutrition counseling, exercise counseling and education provided. Phentermine trial for appetite suppression Labs ordered for next visit, in November Would like to get the records from [place] before starting anything like Concerta. However, if we are phentermine we likely should not try to start it Continuing bioidentical hormone therapy with chiropractor Floaters with photopsia 11/15/2020 07/02/2023 Assessment & Plan (12/13/2020 2:18 PM CDT): Monitor. Symptoms improved. (no flashes since last visit). Discussed signs and symptoms of Retinal tears or detachments. Pt understands to call immediately if noted. Assessment & Plan (11/15/2020 4:08 PM CDT): Monitor. Discussed signs and symptoms of Retinal tears or detachments. Pt understands to call immediately if noted. Retinal drusen, bilateral 11/15/2020 Assessment & Plan (12/13/2020 2:16 PM CDT): Peripheral drusen, both eyes (OU). Monitor. Assessment & Plan (11/15/2020 4:09 PM CDT): Peripheral only, both eyes (OU). Monitor. Nuclear sclerotic cataract, bilateral 11/15/2020 09/19/2023 Assessment & Plan (11/14/2021 5:12 PM CDT): Assessment and Plan 1. Visually Significant Cataract of the right eye - Patient interested in having CE/IOL of the right eye - R/B/A of surgery discussed in detail with patient including but not limited to infection, bleeding, persistent inflammation, diplopia, ptosis, macular edema, need for further surgeries or procedures, need for spectacle correction after surgery, possible loss of vision, possible loss of the eye, and risks of anesthesia. - The patient understands these risks and wishes to proceed. - Target refraction was discussed with the patient. We discussed near, distance, and monovision; we also discussed multifocal, EDOF, and toric lenses. Discussed possible glare/halo following multifocal lenses. The patient elected to target plano Given residual cylinder following toric IOL placement; will repeat testing prior to proceeding with OD. Assessment & Plan (10/04/2021 11:00 AM CDT): -pt now motivated to have surgery OD. Discussed that we will check OD again at 1 month post op visit and decide on timing of surgery. I discussed with her that I will be leaving the department and may not be able to operate on her right eye. Assessment & Plan (06/27/2021 1:12 PM CDT): Assessment and Plan 1. Visually Significant Cataract of the left eye Topography with regular astigmatism OS and we will repeat with pentacam to assess if she is a good candidate for toric IOL. 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 We discussed near, distance, and monovision; we also discussed multifocal, EDOF, and toric lenses. Discussed possible glare/halo following multifocal lenses. She is okay with wearing glasses after surgery but we will discuss after obtaining topography. -status post (s/p) lasik in [place] 13 years ago. Hx myopia. She would likely be bothered by glare/halo at night. She will send us contact information to obtain records. Assessment & Plan (05/09/2021 1:47 PM CDT): Assessment and Plan 1. Visually Significant Cataract of the left eye - Patient interested in having CE/IOL of the left eye - R/B/A of surgery discussed in detail with patient including but not limited to infection, bleeding, persistent inflammation, diplopia, ptosis, macular edema, need for further surgeries or procedures, need for spectacle correction after surgery, possible loss of vision, possible loss of the eye, and risks of anesthesia. - The patient understands these risks and wishes to proceed. - Target refraction was discussed with the patient. We discussed near, distance, and monovision; we also discussed multifocal, EDOF, and toric lenses. Discussed possible glare/halo following multifocal lenses. She is okay with wearing glasses after surgery but we will discuss after obtaining topography. -status post (s/p) lasik in [place] 13 years ago. Hx myopia. She would likely be bothered by glare/halo at night. Assessment & Plan (12/13/2020 2:17 PM CDT): Significant glare complaints/ halo effect around lights at night. Uncomfortable with night driving. Refer for consult when pt ready Assessment & Plan (11/15/2020 4:09 PM CDT): Do glare testing next visit. Refer for consult PRN. Presbyopia 08/31/2010 09/19/2023 Assessment & Plan (06/19/2023 9:25 AM CDT): 3 Month PO PRK Good Vision Art tears PRN Recommend annual eye exams with regular eye doctor Postmenopausal atrophic vaginitis 06/24/2006 02/18/2024 Encounters Date Type Department Care Team Description 04/30/2024 Telephone [facility] [address] [facility] [address] [place] [address] Luann Payne MD Referral Follow Up 04/13/2024 Hospital Encounter [facility] Operating Room [address] [facility] [place] [id number] Jerod Dye MD 03/26/2024 1:30 PM GRIEVANCE AND APPEALS COORDINATOR Office Visit [facility] at [address] [phone] Jarod Pereira MD Hypothyroidism, unspecified type (Primary Dx); Vitamin D deficiency; Acquired hypothyroidism; Screening, lipid 03/17/2024 8:45 AM GRIEVANCE AND APPEALS COORDINATOR Lab [facility] at [address] [phone] Fatigue (Primary Dx); Symptomatic menopausal or female climacteric states 03/17/2024 8:38 AM GRIEVANCE AND APPEALS COORDINATOR - 03/17/2024 11:59 PM GRIEVANCE AND APPEALS COORDINATOR Hospital Encounter [address] [address] Hormone replacement therapy (HRT); Encounter for screening for diabetes mellitus Discharge Disposition: Discharge to home or self care 03/17/2024 Telephone [facility] at [address] [phone] Jarod Pereira MD Mar [address] Pereira cancelled 02/18/2024 11:30 AM GRIEVANCE AND APPEALS COORDINATOR Office Visit [facility] at [address] [phone] Luann Payne MD Dyspareunia in female (Primary Dx); Hormone replacement therapy (HRT); Body mass index (BMI) of 27.0-27.9 in adult; Well woman exam; Family history of breast cancer; Encounter for screening for diabetes mellitus from Last 3 Months Immunizations Immunization Administration Dates Next Due Hep A, Adult 01/25/2015,04/21/2007 Influenza, Quadrivalent, Spl it, Intramuscular 01/25/2015 Influenza, Unspecified 03/26/2024(Deferr ed: Patient Refused),01/09/2024(Deferred: Patient Refused),02/20/2023(Deferred: Patient Refused),02/19/2023(Deferred: Patient Refused),10/25/2022(Deferred: Patient Refused),04/04/2022(Deferred: Patient Refused),02/20/2022(Deferred: Patient Refused),04/28/2021(Deferred: Patient Refused),02/20/2021(Deferred: Patient Refused),02/19/2021(Deferred: Patient Refused),02/20/2020(Deferred: Patient Refused) PPD TEST 11/07/2005 PPD TEST, PPD, MULTIPUNCTURE 11/07/2005 Pfizer SARS-CoV-2 Monovalent Vaccination (12+ Yrs) PURPLE 01/18/2021 Tdap 02/08/2016,11/04/2010 Typhoid Live 02/15/2015 ZOSTER Recombinant 08/18/2022,08/11/2021 Surgical History Surgery Date Site/Laterality Comments LASIK 02/19/2002 - 02/18/2003 Bilateral SECTION 02/20/1996 - 02/18/1997 NECK SURGERY 02/20/2004 - 02/18/2005 Bilateral neck lift LEG SURGERY 02/19/2014 - 02/18/2015 Bilateral phlebectomy KNEE ARTHROSCOPY 02/19/1982 - 02/18/1983 Left CATARACT EXTRACTION W/ INTRAOCULAR LENS IMPLANT 09/28/2021 Left INCONTINENCE SURGERY 02/19/1997 - 02/18/1998 TONSILLECTOMY 02/19/1982 - 02/18/1983 CATARACT EXTRACTION 11/21/2021 Right COLONOSCOPY 12/28/2022 Medical History Medical History Date Comments Thyroid disease Scoliosis Acne cystica Vaginal dryness Cataract Hypothyroidism Covid-19 10/12/2021 HOME TEST ONLY. Symptoms starting 10/06/21 Family History Medical History Relation Name Comments Heart attack Father Heart disease Father Stroke Father Blindness Maternal Grandmother Glaucoma Maternal Grandmother Breast cancer Mother at age 42 1/3 kids. brother lung, aunt at 96 Liver disease Paternal Grandfather Colon cancer Paternal Grandmother Carpal tunnel syndrome Sister Hepatitis Sister Anesthesia problems Neg Hx no transmission design engineer c ancer cmt 05/14/23 Relation Name Status Comments Father Maternal Grandfather Maternal Grandmother Mother Paternal Grandfather Paternal Grandmother Sister Alive Social History Tobacco Use Types Packs/Day Years Used Date Smoking Tobacco: Never Passive Smoke Exposure: Never Smokeless Tobacco: Never Tobacco Cessation:Counseling Given: Not Answered Humiliation, Afraid, Rape, and Kick questionnair e [...] Master's degree (e.g., MA, MS, Melania, MEd, SAFETY GROOVING MACHINE OPERATOR, JAIME) 04/28/2021 Comments No Sex and Gender Information Value Date Recorded Sex Assigned at Not on file Legal Sex Female 10:20 AM CDT Gender Identity Female 10/20/2021 8:56 AM CDT Sexual Orientation Not on file Occupation Industry Job Start Date Job End Date [employer] Not on file Not on file Not on file Obstetrics History Para Term AB IAB SAB Ectopic Multiple Livin g Live Births 1 1 Date Outcome GA Total Labor Labor/2nd/3rd Weight Sex Type Anes PTL Radha A1 A5 Name Clin Last Filed Vital Signs Vital Sign Reading Time Taken Comments Blood Pressure 124/80 03/26/2024 1:32 PM GRIEVANCE AND APPEALS COORDINATOR Pulse 76 03/26/2024 1:32 PM GRIEVANCE AND APPEALS COORDINATOR Temperature 36 C (96.8 F) 03/26/2024 1:32 PM GRIEVANCE AND APPEALS COORDINATOR Respiratory Rate 16 03/26/2024 1:32 PM GRIEVANCE AND APPEALS COORDINATOR Oxygen Saturation 96% 03/26/2024 1:32 PM GRIEVANCE AND APPEALS COORDINATOR Inhaled Oxygen Concentration - - Weight 68.9 kg (152 lb) 03/26/2024 1:32 PM GRIEVANCE AND APPEALS COORDINATOR Height 157.5 cm (5' 2 ) 03/26/2024 1:32 PM GRIEVANCE AND APPEALS COORDINATOR Body Mass Index 27.8 03/26/2024 1:32 PM GRIEVANCE AND APPEALS COORDINATOR Plan of Treatment Health Maintenance Due Date Last Done Comments Hepatitis B Screening 1972 Pneumococcal vaccine 65+ (1 of 1 - PCV) 2004 Osteoporosis Screening-Bone Density Scan 02/15/2023 02/15/2021 Covid-19 Vaccine ( season) 2023 07/13/2021, 01/18/2021, 04/20/2020, Additional history exists Influenza Vaccine (#1) 2024 01/25/2015 Postp oned from 10/21/2023 (Patient declined, but will receive in the future) Breast Cancer Screening-Mammogram 12/10/2024 12/11/2023, 06/12/2023, 09/07/2021, Additional history exists Fall Risk Assessment 01/08/2025 01/09/2024, 12/28/2022, 12/11/2022, Additional history exists Well Visit 65+ 01/08/2025 01/09/2024, 11/20, 11/28/2021 Depression Screening 03/26/2025 03/26/2024, 01/09/2024, 05/14/2023, Additional history exists DTaP/Tdap/Td Vaccine (3 - Td or Tdap) 02/07/2026 02/08/2016, 11/04/2010 Colon Cancer Screening-Colonoscopy 12/29/2027 12/28/2022 Hepatitis C Screening Completed 10/20/2021 Zoster Vaccine Completed 08/18/2022, 08/11/2021 Medical Devices Implanted Type Area Brick Pitcher Device Identifier Shelf Expiration Date Model / Serial / Lot [employer] Acrysof Iq Toric Stableforce 6mm 13mm 1 Piece Foldable Aspheric [id number] - [id number] - [id number] Implanted:Qty: 1 on 09/28/2021 by Jerod Dye MD at [facility] Lens Left: Eye [employer] [id number] 10/19/2021 [id number] 0 / [id number] / [employer] Lens Iol Cna0t0.215 [place]on Uva Autonom Cna0t0.215 - [id number] - [id number] Implanted:Qty: 1 on 11/21/2021 by Jerod Dye MD at [facility] Lens Right: Eye [employer] [id number] 05/23/2024 CNA0T0.21 5 / [id number] / Procedures Procedure Name Priority Date/Time Associated Diagnosis Comments INSULIN, TOTAL Routine 03/17/2024 8:38 AM GRIEVANCE AND APPEALS COORDINATOR Hormone replacement therapy (HRT) HEMOGLOBIN A1C Routine 03/17/2024 8:38 AM GRIEVANCE AND APPEALS COORDINATOR Hormone replacement therapy (HRT) Encounter for screening for diabetes mellitus TESTOSTERONE, TOTAL AND FREE, SERUM Routine 03/17/2024 8:38 AM GRIEVANCE AND APPEALS COORDINATOR Hormone replacement therapy (HRT) DIAGNOSTIC MAMMOGRAM BILATERAL W ANDREW Schedule Routine, Read Routine (OP Routine) 12/11/2023 Abnormal mammogram of both breasts COLONOSCOPY 12/28/2022 11:09 AM GRIEVANCE AND APPEALS COORDINATOR HEPATITIS C ANTIBODY Routine 10/20/2021 8:58 AM CDT Encounter for hepatitis C screening test for low risk patient HM DEXA SCAN Routine 02/15/2021 from Last 3 Months or Most Recently Relevant to Health Maintenance Results * Insulin, total (03/17/2024 8:38 AM GRIEVANCE AND APPEALS COORDINATOR) Insulin 4.2 2.6 - 25.0 mcIUnit/mL Comment:Testing performed by : [facility], [address] [place]., [address] Blood 03/17/2024 8:38 AM GRIEVANCE AND APPEALS COORDINATOR 03/17/2024 7:44 PM GRIEVANCE AND APPEALS COORDINATOR us Luann Payne MD LAB BLOOD ORDERABLE S Final Result [facility] ORNELAS [address] [place] [address] * Testosterone, Total and Free, Serum (03/17/2024 8:38 AM GRIEVANCE AND APPEALS COORDINATOR) Pathologist [facility] Testosterone 25 8 - 60 ng/dL [facility] Comment: ADDITIONAL INFORMATION Testing performed by Liquid Chromatography-Tandem Mass Spectrometry (LC-MS/MS). This test was developed and its performance characteristics determined by [facility] in a manner consistent with CLIA requirements. This test has not been cleared or approved by the U.S. Food and Drug Administration. Test Performed by: [facility] [address] [place] [address] Boiler Repair Supervisor: Dexter Snyder Ph.D.; CLIA# [id number] Testosterone, free 0.34 <0.13 - 0.84 ng/dL [facility] Comment: ADDITIONAL INFORMATION This test was developed and its performance characteristics determined by [facility] in a manner consistent with CLIA requirements. This test has not been cleared or approved by the U.S. Food and Drug Administration. Blood 03/17/2024 8:38 AM GRIEVANCE AND APPEALS COORDINATOR 03/17/2024 2:46 PM GRIEVANCE AND APPEALS COORDINATOR Luann Payne MD LAB BLOOD ORDERABLE S Final Result Performing Organization Address [facility] de Phone Number [facility]EL[facility] [address] [place] [address] [facility] * Hemoglobin A1c (03/17/2024 8:38 AM GRIEVANCE AND APPEALS COORDINATOR) Hgb A1C 5.0 4.0 - 5.6 % Estimated Average Glucose 97 mg/dL [facility] Comment: The ADA recommends reporting an estimated Average Glucose (eAG) with all Hemoglobin A1c results using the equation derived from a study of 507 normal and diabetic adults. Minority populations were underrepresented and children were not included. (Diabetes Care 31:2354-6860, 2008). The eAG is not equivalent to a fasting glucose. Blood 03/17/2024 8:38 AM GRIEVANCE AND APPEALS COORDINATOR 03/17/2024 2:46 PM GRIEVANCE AND APPEALS COORDINATOR Luann Payne MD LAB BLOOD ORDERABLE S Final Result Performing Organization Address [facility] Phone Number [place] [address] [place] [address] * DIAGNOSTIC MAMMOGRAM BILATERAL W ANDREW (12/11/2023) Anatomical Region Laterality Modality Breast Bilateral Mammography Jarod Pereira MD IMG MAMMO PROCEDURES Final Result * COLONOSCOPY (12/28/2022 11:09 AM GRIEVANCE AND APPEALS COORDINATOR) Anatomical Region Laterality Modality Other Narrative Procedure Note Ana Saravia MD - 12/28/2022 11:09 AM CST [facility] Endoscopy Lab Patient Name: Latosha Zuluaga Procedure Date: 12/28/2022 11:09 AM Date of : 1955 Admit Type: Outpatient Age: 67 Gender: Female Note Status: Finalized Attending MD: Ana Saravia M.D. Procedure Date: 12/28/2022 Procedure: Colonoscopy Indications: High risk colon cancer surveillance: Personalhistory of colonic polyps, Last colonoscopy: date unknown (unable to locate last colonoscopy report) Providers: Ana Saravia M.D., Ariana Chiang CRNA (Anesthesia Staff), Hoa Arana RN, Yann Grimes, Finishing Manager, Glenis Perez, Finishing Manager Referring MD: Jarod Pereira M.D. Medicines: Monitored Anesthesia Care Complications: No immediate complications. Estimated Blood Loss: Estimated blood loss: none. Procedure: Pre-Anesthesia Assessment: - Prior to the procedure, a History and Physicalwas performed, and patient medications and allergieswere reviewed. The patient is competent. The risks and benefits of the procedure and the sedation optionsand risks were discussed with the patient. Allquestions were answered and informed consent was obtained. Patient identification and proposed procedure were verified by the physician, the nurse and the chemical laboratory scientist in the procedure room. Mental Status Examination: alert and oriented. AirwayExamination: normal oropharyngeal airway and neck mobility. Respiratory Examination: clear to auscultation. CV Examination: normal. Prophylactic Antibiotics: The patient does not require prophylactic antibiotics. Prior Anticoagulants: The patient has taken no anticoagulant or antiplatelet agents. ASA Grade Assessment: III - A patient with severe systemic disease. After reviewing the risks and benefits,the patient was deemed in satisfactory condition to undergo the procedure. The anesthesia plan was touse monitored anesthesia care (MAC). Immediately priorto administration of medications, the patient was re-assessed for adequacy to receive sedatives. The heart rate, respiratory rate, oxygen saturations, blood pressure, adequacy of pulmonary ventilation,and response to care were monitored throughout the procedure. The physical status of the patient was re-assessed after the procedure. - The risks and benefits of the procedure and the sedation options and risks were discussed with the patient. All questions were answered and informed consent was obtained. After I obtained informed consent, the scope was passed under direct vision. Throughout theprocedure, the patient's blood pressure, pulse, and oxygen saturations were monitored continuously. The scopewas passed under direct vision. The Colonoscope was introduced through the anus and advanced to the the cecum, identified by appendiceal orifice andileocecal valve. The bowel preparation used was Clenpiq via split dose instruction. The quality of the bowel preparation was adequate. Bowel prep wasadministered using a split dose. Findings: Multiple small-mouthed diverticula were found in the left colon. The exam was otherwise without abnormality on direct and retroflexion views. Impression: - Diverticulosis in the left colon. - The examination was otherwise normal on directand retroflexion views. - No specimens collected. Recommendation: - High fiber diet. - Repeat colonoscopy in 5 years for surveillance. Procedure Code(s): --- Professional --- 32761, Colonoscopy, flexible; diagnostic, including collection of specimen(s) by brushing or washing,when performed (separate procedure) Diagnosis Code(s): --- Professional --- Z86.010, Personal history of colonic polyps K57.30, Diverticulosis of large intestine without perforation or abscess without bleeding CPT copyright 2020 [employer]. All rights reserved. The codes documented in this report are preliminary and upon senior architect/design manager reviewmay be revised to meet current compliance requirements. Electronically signed by Ana Saravia M.D. Ana Saravia M.D. 12/28/2022 11:33:23 AM Number of Addenda: 0 Note Initiated On: 12/28/2022 11:09 AM Ana Saravia MD ENDOSCOPY PROCEDURES Fi nal Result * Hepatitis C antibody (10/20/2021 8:58 AM CDT) Hep C Ab Nonreactive Nonreactive [facility] Comment: Interpretive Data Nonreactive: Antibodies to HCV not detected. Does NOT exclude the possibility of recent exposure to HCV. Equivocal: Equivocal for HCV antibodies. Supplemental molecular testing will be automatically performed to determine infection status in accordance with current CDC screening recommendations. Reactive: Positive for HCV antibodies. This may represent current or past HCV infection. Supplemental molecular testing will be automatically performed to determine current infection status in accordance with current CDC screening recommendations. Interpretive data was last revised on 2019. Blood 10/20/2021 8:58 AM CDT 10/20/2021 3:18 PM CDT Jarod Pereira MD LAB MICROBIOLOGY - GENERAL ORDERABLES Final Result MAEGAN [address] Department [place] [address] * HM DEXA SCAN (02/15/2021) Scribed HM Deca Scan Normal Sri Garcia MD HEALTH MAINTENANCE Final Result from Last 3 Months or Most Recently Relevant to Health Maintenance Insurance [facility] [employer] [employer] Member Subscriber Plan / Payer (Ef fective 2020-Present) Name:Latosha Zuluaga Relation to Subscriber:Self Name:Latosha Zuluaga Payer ID:[id number] (NAIC) Type:[facility] Address: [place] [id number] [facility] [employer] Member Subscriber Plan / Payer (Ef fective 2021-) Name:Latosha Zuluaga Relation to Subscriber:Self Name:Latosha Zuluaga Payer ID:[id number] (NAIC) Type:[facility] Address: [place] [phone] [facility] [employer] Member Subscriber Plan / Payer (Ef fective 2021-Present) Name:Latosha Zuluaga Relation to Subscriber:Self Name:Latosha Zuluaga Payer ID:[id number] (NAIC) Type:[facility] Address: [place] [phone] Care Teams Pbx Wire Chief Relationship Specialty Start Date End Date Jarod Pereira MD [address] [place] [address] PCP - General Family Medicine 01/15/24 Josh Pugh DC [address] [place] [address] Referring Physician 04/28/21 Leonard Russell DO [address] [place] [address] Consulting Physician Endocrinology Diabetes & Metabolism 03/26/24 Luann Payne MD [address] [place] [address] Consulting Physician Obstetrics and Gynecology 03/26/24
--- OUTSIDE RECORDS SUMMARY | 2024-05-12 17:13 | XMS_ITS | Encounter Summary ---
Author Organization [facility] Healthcare Address [address] [place] [address] Care Team Providers Care Banana Ripening Room Supervisor Name Role Phone Unavailable Primary Care Provider Unavailabl e Reason for Visit * Diagnostic Imaging (Routine) - Closed Specialty Diagnoses / Procedures Referred By Wilver t Referred To Contact Procedures Breast Imaging Screening Outside Reference Aft, Nubia Pete MD PhD [address] [place] [address] Phone: tel: fax: Referral ID Status Reason Start Date Expiration Date Visits Re quested Visits Authorized [id number] Closed 10/27/2021 11/26/2022 1 1 Encounter Details Date Type Department Care Team (Late st Contact Info) Description 12/17/2014 Hospital Encounter [facility] [address] [place] [phone] Social History Tobacco Use Types Packs/Day Years [...] Master's degree (e.g., MA, MS, Melania, MEd, TOUCH UP CARVER, JAIME) 04/28/2021 Comments No Sex and Gender [...] BREAST IMAGING MG SCREENING OUTSIDE REFERENCE Routine 12/17/2014 12:00 AM CDT documented in this encounter Results * Breast Imaging Screening Outside Reference (12/17/2014 12:00 AM CDT) Impressions [facility] - 10/27/2021 10:23 AM CDT These images are for Reference purposes only and have not been reviewed by [facility] Radiology. There will be no report generated by a [facility] Radiologist. Narrative [facility] - 10/27/2021 10:23 AM CDT EXAMINATION: Images For Reference Purposes Only us Nubia Evans MD PhD IMG MAMMO PROCEDURES Final Result [facility] documented in this encounter Visit Diagnoses Not on filedocumented in this encounter
--- OUTSIDE RECORDS SUMMARY | 2024-05-12 17:13 | XMS_ITS | Encounter Summary ---
Author Organization [facility] Healthcare Address [address] [place] [address] Care Team Providers Care Supervisor Remelt Name Role Phone Unavailable Primary Care Provider Unavailabl e Reason for Visit * Diagnostic Imaging (Routine) - Closed Specialty Diagnoses / Procedures Referred By Wilver t Referred To Contact Procedures Breast Imaging US Outside Reference Aft, Nubia Pete MD PhD [address] [place] [address] Phone: tel: fax: Referral ID Status Reason Start Date Expiration Date Visits Re quested Visits Authorized [id number] Closed 10/27/2021 11/26/2022 1 1 Encounter Details Date Type Department Care Team (Late st Contact Info) Description 08/27/2015 Hospital Encounter [facility] [address] [place] [phone] Social History Tobacco Use Types Packs/Day Years [...] Master's degree (e.g., MA, MS, Melania, MEd, JAVA ENTERPRISE ARCHITECT, JAIME) 04/28/2021 Comments No Sex and Gender [...] Comments BREAST IMAGING US OUTSIDE REFERENCE Routine 08/27/2015 12:00 AM CDT documented in this encounter Results * Breast Imaging US Outside Reference (08/27/2015 12:00 AM CDT) Impressions [facility] - 10/27/2021 10:24 AM CDT These images are for Reference purposes only and have not been reviewed by [facility] Radiology. There will be no report generated by a [facility] Radiologist. Narrative [facility] - 10/27/2021 10:24 AM CDT EXAMINATION: Images For Reference Purposes Only us Nubia Evans MD PhD IMG MAMMO PROCEDURES Final Result [facility] documented in this encounter Visit Diagnoses Not on filedocumented in this encounter
--- OUTSIDE RECORDS SUMMARY | 2024-05-12 17:13 | XMS_ITS | Encounter Summary ---
Author Organization [facility] Healthcare Address [address] [place] [address] Care Team Providers Care Circuit Court Magistrate Name Role Phone Josh Pugh DC Unavailable [phone] Jarod Pereira MD Primary Care Provider [phone] Leonard Russell DO Unavailable [phone] Luann Payne MD Unavailable + [phone] Encounter Details Date Type Department Care Team (Late st Contact Info) Description 04/13/2024 Hospital Encounter [facility] Operating Room [address] [place] [address] Jerod Dye MD [address] [place] [address] Social History Tobacco Use Types Packs/Day Years [...] Master's degree (e.g., MA, MS, Melania, MEd, LABORER SHAFT SINKING, JAIME) 04/28/2021 Comments No Sex and Gender Information Value Date Recorded Sex Assigned at Not on file Legal Sex Female 10:20 AM CDT Gender Identity Female 10/20/2021 8:56 AM CDT Sexual Orientation Not on file 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 Not on file Not on file Not on file documented as of this encounter Plan of Treatment Not on file documented as of this encounter Visit Diagnoses Diagnosis Nuclear sclerotic cataract of right eye- Primary Senile nuclear sclerosis documented in this encounter Admitting Diagnoses Diagnosis Nuclear sclerotic cataract of right eye Senile nuclear sclerosis documented in this encounter Care Teams Circuit Court Magistrate Relationship Specialty Start Date End Date Jarod Pereira MD [address] [place] [address] PCP - General Family Medicine 01/15/24 Josh Pugh DC [address] [place], [place] [id number] Referring Physician 04/28/21 Leonard Russell DO [address] [place] [address] Consulting Physician Endocrinology Diabetes & Metabolism 03/26/24 Luann Payne MD [address] [place] [address] [address] [place] [address] Consulting Physician Obstetrics and Gynecology 03/26/24 documented as of this encounter
--- OUTSIDE RECORDS SUMMARY | 2024-05-12 17:13 | XMS_ITS | Referral Summary ---
Author Organization [facility] Address [address] [place] [address] Care Team Providers Care Football Coach Name Role Phone Josh Pugh DC Unavailable [phone] Jarod Pereira MD Primary Care Provider [phone] RussellLeonard DO Unavailable [phone] Luann Payne MD Unavailable [phone] Encounters Date Type Department Care Team Description 04/30/2024 Telephone [employer] [facility] [address] [place] [address] Luann Payne MD Referral Follow Up 04/13/2024 Hospital Encounter [facility] Operating Room [address] [place] [address] Jerod Dye MD 03/26/2024 1:30 PM SLIDE FASTENER REPAIRER Office Visit [facility] Primary Care at [address] [address] Jarod Pereira MD Hypothyroidism, unspecified type (Primary Dx); Vitamin D deficiency; Acquired hypothyroidism; Screening, lipid 03/17/2024 8:38 AM SLIDE FASTENER REPAIRER - 03/17/2024 11:59 PM SLIDE FASTENER REPAIRER Hospital Encounter [facility] [id number] [place] [address] Hormone replacement therapy (HRT); Encounter for screening for diabetes mellitus Discharge Disposition: Discharge to home or self care 03/17/2024 8:45 AM SLIDE FASTENER REPAIRER Lab [facility] Outpatient Lab at [address] [address] Fatigue (Primary Dx); Symptomatic menopausal or female climacteric states 03/17/2024 Telephone [facility] Primary Care at [address] [address] Jarod Pereira MD Mar [address] Pereira cancelled 02/18/2024 11:30 AM SLIDE FASTENER REPAIRER Office Visit [facility] at [address] [address] Luann Payne MD Dyspareunia in female (Primary Dx); Hormone replacement therapy (HRT); Body mass index (BMI) of 27.0-27.9 in adult; Well woman exam; Family history of breast cancer; Encounter for screening for diabetes mellitus from Last 3 Months Allergies Active Allergy Reactions Criticality Noted Date Comments Grass Pollen Cough Low 07/12/2022 Latex Rash Medium 11/15/2020 Contact dermatitis Penicillins Rash Medium 11/15/2020 Contact dermatitis Medications kfqmffyh-mny-mj lic acid-vit K 400-80 mcg capsule Take by mouth Active cycloSPORINE (RESTASIS) 0.05 % ophthalmic emulsionIndicat ions:Keratoconj unctivitis sicca,Dry eye syndrome of both eyes Administer 1 drop into both eyes 2 (two) times a day 60 each 11 4 Active levothyroxine (SYNTHROID) 75 mcg tablet Take 1 tablet (75 mcg total) by mouth cocoa bean roaster helper before breakfast 30 tablet 5 4 Active [...] 01/27/2024 Assessment & Plan (01/27/2024 8:47 PM SLIDE FASTENER REPAIRER): - Due for DEXA scan - Check vitamin-D hydroxy - Recommend supplementation with calcium 1200 mg + vitamin-D 800 IU daily - Continue routine weight-bearing exercise Body mass index (BMI) of 27.0-27.9 in adult 09/2023 Assessment & Plan (02/18/2024 1:13 PM SLIDE FASTENER REPAIRER): She is worried about insulin resistant Will check insulin level To hgba1c To berberine Assessment & Plan (01/27/2024 8:50 PM SLIDE FASTENER REPAIRER): - request to restart phentermine as she had recently been on this with good response - Close to ideal BMI - Re-evaluate in 4 weeks Well woman exam 05/14/2023 Overview (05/14/2023): Lab: Pap: all normal Labs with pcp Flip:due Colonoscopy:12/2022- she is not sure when she is to come back BMD:due Assessment & Plan (02/18/2024 1:12 PM SLIDE FASTENER REPAIRER): Complete exam due in 04/2024 Assessment & Plan (05/14/2023 1:35 PM CDT): Complete exam done today Family history of breast cancer 05/14/2023 Overview (05/14/2023): M- age 41 May have been only cystic breast. Small family She did 23 and me and was negative. We discussed the limitations. Assessment & Plan (02/18/2024 1:15 PM SLIDE FASTENER REPAIRER): She is interested in going to [facility] to the High Risk Breast Clinic Assessment & Plan (05/14/2023 2:56 PM CDT): M- age 41 May have been only cystic breast. Small family She did 23 and me and was negative. We discussed the limitations. Dyspareunia in female 05/14/2023 Assessment & Plan (02/18/2024 1:10 PM SLIDE FASTENER REPAIRER): To vaginal estrogen Use reviewed To decide about dilators Assessment & Plan (05/14/2023 2:58 PM CDT): Options discussed Can increase the estrogen cream to three times a week To get adequate foreplay We discussed dilators and she declines at this time. Hormone replacement therapy (HRT) 05/14/2023 Assessment & Plan (02/18/2024 1:11 PM SLIDE FASTENER REPAIRER): She has stopped her meds Will repeat [...] months Assessment & Plan (04/10/2022 3:45 PM SLIDE FASTENER REPAIRER): PRK healing Removed bandage CL OD - Combination drop: moxifloxacin/prednisolone acetate 1% - 4 times a day for 1 week, then 2 times a day for 1 week - Ketorolac - 4 times a day for 4 days - Artificial tears - as needed Return in 3 weeks Assessment & Plan (03/20/2022 2:51 PM SLIDE FASTENER REPAIRER): PRK healing OS 20/30 UCVA, Patient is ready to have surgery to OD. Notes slight blur to OS, but vision is functional Anterior swirl of epithelium on corneal surface from limbal surface in left eye. Will continue to monitor Patient to return for surgery to OD at her convenience. Continue ointment and art tears. Assessment & Plan (02/27/2022 8:44 AM SLIDE FASTENER REPAIRER): 5 Day PO PRK PRK healing Small epithelial filament OS, removed with sterile Qtip No signs of infection Removed bandage contact lens Continue Pred/moxi QID until 7 days PO, then BID for one week, then discontinue Return in 3 weeks Start Oscar 128 ointment at night Continue Sun Rx Discussed activities Assessment & Plan (02/25/2022 9:29 AM SLIDE FASTENER REPAIRER): Three Day Post-Op PRK Epithelium healing, 60% No signs of infection or inflammation Continue Ketorolac QID until 4 days PO Continue moxifloxacin/prednisilone acetate 1% QID Artificial tears PRN Return for 5 day Post-op Visit Discussed limitations in activities and precautions Encounter for Medicare annual wellness exam 11/19 Assessment & Plan (01/27/2024 8:43 PM SLIDE FASTENER REPAIRER): - Mammogram (10/12/2021): BI-RADS Category 2: Benign- overdue for repeat mammogram; repeat mammogram orders already in place- instructed to call to schedule - Continue routine well-woman care/Pap as per wood room supervisor - Colonoscopy (12/28/2022): Negative for polyps; repeat [...] vision, pain, redness, flashes/floaters/curtains - No lifting/bending/swimming. Dorman shield while sleeping, protective eyewear during day. [...] 04/28/2021 Assessment & Plan (04/28/2021 1:11 PM SLIDE FASTENER REPAIRER): A initial well visit to establish care [...] 11/23/2011 Assessment & Plan (01/27/2024 8:45 PM SLIDE FASTENER REPAIRER): - Most recent TSH 2.35 - Continues on Cytomel- receiving care for this at [facility]- request repeat full thyroid panel Assessment & Plan (06/08/2022 9:10 AM CDT): Patient taking Cytomel per [facility] and states she recently had labs drawn [...] loss. Assessment & Plan (04/04/2022 10:23 AM SLIDE FASTENER REPAIRER): Discussed having a healthier relationship with food [...] 09/19/2023 Assessment & Plan (02/20/2022 3:46 PM SLIDE FASTENER REPAIRER): Mixed astigmatism Irregular astigmatism Previous LASIK Surgery [...] Assessment & Plan (11/04/2021 4:10 PM CDT): NO0Pdfgjmjfq extraction (CE)/posterior chamber intraocular lens (PCIOL) Toric [...] at night. - RTC 1 month for DFAlvin, x Assessment & Plan (09/30/2021 1:00 PM CDT): PO1D cataract extraction (CE)/posterior chamber intraocular lens (PCIOL) left eye (OS) Toric [place] where intended (125) The posterior chamber intraocular [...] 04/28/2021 Assessment & Plan (04/29/2021 6:31 PM SLIDE FASTENER REPAIRER): BMI Follow-up includes: nutrition counseling, exercise counseling and education provided. Phentermine trial for appetite suppression Labs ordered for next visit, in November Would like to get the records from [place] before starting anything like Concerta. However, if we are phentermine we likely should not try to start it Continuing bioidentical hormone therapy with chiropractor Floaters with photopsia 11/15/202008/21 Assessment & Plan (12/13/2020 2:18 PM CDT): [...] obtaining topography. -status post (s/p) lasik in [place] 13 years ago. Hx myopia. She would [...] obtaining topography. -status post (s/p) lasik in [place] 13 years ago. Hx myopia. 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 Not on file Not on file Not on file Last Filed Vital Signs Vital Sign Reading Time Taken Comments Blood Pressure 124/80 03/26/2024 1:32 PM SLIDE FASTENER REPAIRER Pulse 76 03/26/2024 1:32 PM SLIDE FASTENER REPAIRER Temperature 36 C (96.8 F) 03/26/2024 1:32 PM SLIDE FASTENER REPAIRER Respiratory Rate 16 03/26/2024 1:32 PM SLIDE FASTENER REPAIRER Oxygen Saturation 96% 03/26/2024 1:32 PM SLIDE FASTENER REPAIRER Inhaled Oxygen Concentration - - Weight 68.9 kg (152 lb) 03/26/2024 1:32 PM SLIDE FASTENER REPAIRER Height 157.5 cm (5' 2 ) 03/26/2024 1:32 PM SLIDE FASTENER REPAIRER Body Mass Index 27.8 03/26/2024 1:32 PM SLIDE FASTENER REPAIRER Plan of Treatment Not on file Medical Devices Implanted Type Area Icu Specialist Device Identifier Shelf Expiration Date Model / Serial / Lot [employer] Acrysof Iq Toric Stableforce 6mm 13mm 1 Piece Foldable Aspheric [id number] - [id number] - [id number] Implanted:Qty: 1 on 09/28/2021 by Jerod Dye MD at [facility] Lens Left: Eye [employer] [id number] 10/19/2021 [id number] / [employer] Lens Iol Cna0t0.215 Ruben Uva Autonom Cna0t0.215 - [id number] - [id number] Implanted:Qty: 1 on 11/21/2021 by Jerod Dye MD at [facility] Lens Right: Eye [employer] [id number] 05/23/2024 CNA0T0.21 5 [id number] / Procedures Procedure Name Priority Date/Time Associated Diagnosis Comments INSULIN, TOTAL Routine 03/17/2024 8:38 AM SLIDE FASTENER REPAIRER Hormone replacement therapy (HRT) HEMOGLOBIN A1C Routine 03/17/2024 8:38 AM SLIDE FASTENER REPAIRER Hormone replacement therapy (HRT) Encounter for screening for diabetes mellitus TESTOSTERONE, TOTAL AND FREE, SERUM Routine 03/17/2024 8:38 AM SLIDE FASTENER REPAIRER Hormone replacement therapy (HRT) DIAGNOSTIC MAMMOGRAM BILATERAL W ANDREW Schedule Routine, Read Routine (OP Routine) 12/11/2023 Abnormal mammogram of both breasts COLONOSCOPY 12/28/2022 11:09 AM SLIDE FASTENER REPAIRER HEPATITIS C ANTIBODY Routine 10/20/2021 8:58 AM CDT Encounter for hepatitis C screening test for low risk patient HM DEXA SCAN Routine 02/15/2021 from Last 3 Months or Most Recently Relevant to Health Maintenance Results * Insulin, total (03/17/2024 8:38 AM SLIDE FASTENER REPAIRER) Insulin 4.2 2.6 - 25.0 mcIUnit/mL Comment:Testing performed by : [facility], [address] [place]., [address] Blood 03/17/2024 8:38 AM SLIDE FASTENER REPAIRER 03/17/2024 7:44 PM SLIDE FASTENER REPAIRER Luann Payne MD LAB BLOOD ORDERABLE S Final Result Performing Organization Address [facility] Co de Phone Number MAEGAN ORNELAS [address] [place] [address] * Testosterone, Total and Free, Serum (03/17/2024 8:38 AM SLIDE FASTENER REPAIRER) Testosterone 25 8 - 60 ng/dL [facility] Comment: ADDITIONAL INFORMATION Testing performed by Liquid Chromatography-Tandem Mass Spectrometry (LC-MS/MS). This test was developed and its performance characteristics determined by [facility] in a manner consistent with CLIA requirements. This test has not been cleared or approved by the U.S. Food and Drug Administration. Test Performed by: [facility] [place] [address] Regular Senior Care Provider: Dexter Snyder Ph.D.; CLIA# [id number] Testosterone, free 0.34 <0.13 - 0.84 ng/dL [facility] Comment: ADDITIONAL INFORMATION This test was developed and its performance characteristics determined by [facility] in a manner consistent with CLIA requirements. This test has not been cleared or approved by the U.S. Food and Drug Administration. Blood 03/17/2024 8:38 AM SLIDE FASTENER REPAIRER 03/17/2024 2:46 PM SLIDE FASTENER REPAIRER Luann Payne MD LAB BLOOD ORDERABLE S Final Result Performing Organization Address [facility] Co de Phone Number MAEGAN ORNELAS [address] Department [place] [address] [facility] * Hemoglobin A1c (03/17/2024 8:38 AM SLIDE FASTENER REPAIRER) Hgb A1C 5.0 4.0 - 5.6 % Estimated Average Glucose 97 mg/dL MAE[facility] ORNEL[facility] Comment: The ADA recommends reporting an estimated Average Glucose (eAG) with all Hemoglobin A1c results using the equation derived from a study of 507 normal and diabetic adults. Minority populations were underrepresented and children were not included. (Diabetes Care 31:7400-3830, 2008). The eAG is not equivalent to a fasting glucose. Blood 03/17/2024 8:38 AM SLIDE FASTENER REPAIRER 03/17/2024 2:46 PM SLIDE FASTENER REPAIRER us Luann Payne MD LAB BLOOD ORDERABLE S Final Result MAEGAN ORNELAS [address] Department [place] [address] * DIAGNOSTIC MAMMOGRAM BILATERAL W ANDREW (12/11/2023) Anatomical Region Laterality Modality Breast Bilateral Mammography us Jarod Pereira MD IMG MAMMO PROCEDURES Final Result * COLONOSCOPY (12/28/2022 11:09 AM SLIDE FASTENER REPAIRER) Anatomical Region Laterality Modality Other Narrative Procedure Note Ana Saravia MD - 12/28/2022 11:09 AM CST [facility] Patient Name: Latosha Zuluaga Procedure [...] M.D., Ariana Chiang CRNA (Anesthesia Staff), Hoa Arana, RN, Yann Grimes, Supervisor Paint Roller Covers, Glenis Perez, Supervisor Paint Roller Covers Referring MD: Jarod Pereira M.D. Medicines: Monitored [...] by the physician, the nurse and the game farm supervisor in the procedure room. Mental Status Examination: [...] for surveillance. Procedure Code(s): --- Professional --- 92671, Colonoscopy, flexible; diagnostic, including collection of specimen(s) by brushing or washing,when performed (separate procedure) Diagnosis Code(s): --- Professional --- Z86.010, Personal history of colonic polyps K57.30, Diverticulosis of large intestine without perforation or abscess without bleeding CPT copyright 2020 [employer] [place] [employer]. All rights reserved. The codes documented in this report are preliminary and upon remelt operator reviewmay be revised to meet current compliance requirements. Electronically signed by Ana Saravia M.D. Ana Saravia M.D. 12/28/2022 11:33:23 AM Number of Addenda: 0 Note Initiated On: 12/28/2022 11:09 AM us Ana Saravia MD ENDOSCOPY PROCEDURES Fi nal [...] LAB MICROBIOLOGY - GENERAL ORDERABLES Final Result [facility] [address] Department [place] [address] * DEXA SCAN (02/15/2021) Scribed Deca Scan Normal Historical Provider HEALTH MAINTENANCE Final Result from Last 3 Months or Most Recently Relevant to Health Maintenance Insurance [facility] Care Teams Football Coach Relationship Specialty Start Date End Date Jarod Pereira MD [address] [facility] [address] [place] [address] PCP - General Family Medicine 01/15/24 Josh Pugh DC [address] [facility] [address] [place] [address] Referring Physician 04/28/21 Leonard Russell DO [address] [facility] [address] [place] [address] Consulting Physician Endocrinology Diabetes & Metabolism 03/26/24 Luann Payne MD [address] [place] [address] [address] [place] [address] Consulting Physician Obstetrics and Gynecology 03/26/24
--- OUTSIDE RECORDS SUMMARY | 2024-05-12 17:13 | XMS_ITS | Encounter Summary ---
Author Organization [facility] Healthcare Address [address] [place] [address] Care Team Providers Care Plaster Helper Name Role Phone Unavailable Primary Care Provider Unavailabl e Reason for Visit * Diagnostic Imaging (Routine) - Closed Specialty Diagnoses / Procedures Referred By Wilver t Referred To Contact Diagnoses Breast cyst, left Procedures Breast Imaging Screening Outside Reference Aft, Nubia Pete MD PhD [address] [place] [address] Phone: tel: fax: Referral ID Status Reason Start Date Expiration Date Visits Re quested Visits Authorized [id number] Closed 10/27/2021 11/26/2022 1 1 Encounter Details Date Type Department Care Team (Late st Contact Info) Description 12/27/[address] [facility] [address] [place], [place] [id number] Social History Tobacco Use Types Packs/Day Years [...] Master's degree (e.g., MA, MS, Melania, MEd, IRRIGATOR, JAIME) 04/28/2021 Comments No Sex and Gender [...] Comments BREAST IMAGING MG SCREENING OUTSIDE REFERENCE Schedule Routine, Read Routine (OP Routine) 12/27/2010 12:00 AM HOUSEKEEPING ASSOCIATE Breast cyst, left documented in this encounter Results * Breast Imaging Screening Outside Reference (12/27/2010 12:00 AM HOUSEKEEPING ASSOCIATE) Impressions [facility] - 10/27/2021 10:22 AM CDT These images are for Reference purposes only and have not been reviewed by [facility]. There will be no report generated by a [facility] Radiologist. Narrative [facility] - 10/27/2021 10:22 AM CDT EXAMINATION: Images For Reference Purposes Only us Nubia Evans MD PhD IMG MAMMO PROCEDURES Final Result [facility] documented in this encounter Visit Diagnoses Not on filedocumented in this encounter
--- OUTSIDE RECORDS SUMMARY | 2024-05-12 17:13 | XMS_ITS | Encounter Summary ---
Author Organization [facility] Healthcare Address [address] [place] [address] Care Team Providers Care Corporate Tutor Name Role Phone Unavailable Primary Care Provider Unavailabl e Reason for Visit * Diagnostic Imaging (Routine) - Closed Specialty Diagnoses / Procedures Referred By Wilver t Referred To Contact Procedures Breast Imaging Screening Outside Reference Elana Chowdhury MD PhD [address] [facility] [id number] [place] [address] Phone: tel: fax: Referral ID Status Reason Start Date Expiration Date Visits Re quested Visits Authorized [id number] Closed 10/12/2021 11/11/2022 1 1 Encounter Details Date Type Department Care Team (Late st Contact Info) Description 10/23/2017 12:05 AM CDT Hospital Encounter [facility] [address] [place] [address] Social History Tobacco Use Types Packs/Day Years [...] Master's degree (e.g., MA, MS, Melania, MEd, YIELD CLERK, JAIME) 04/28/2021 Comments No Sex and Gender [...] BREAST IMAGING MG SCREENING OUTSIDE REFERENCE Routine 10/23/2017 12:05 AM CDT documented in this encounter Results * Breast Imaging Screening Outside Reference (10/23/2017 12:05 AM CDT) Impressions [facility] - 10/12/2021 12:49 PM CDT These images are for Reference purposes only and have not been reviewed by [facility]. There will be no report generated by a [facility] Radiologist. Narrative [facility] - 10/12/2021 12:49 PM CDT EXAMINATION: Images For Reference Purposes Only Elana Chowdhury MD PhD IMG MAMMO PROCEDURES Final Result [facility] documented in this encounter Visit Diagnoses Not on filedocumented in this encounter
--- OUTSIDE RECORDS SUMMARY | 2024-05-12 17:13 | XMS_ITS | Encounter Summary ---
Author Organization [facility] Healthcare Address [address] [place] [address] Care Team Providers Care Metal Fabricator Name Role Phone Unavailable Primary Care Provider Unavailabl e Reason for Visit * Diagnostic Imaging (Routine) - Closed Specialty Diagnoses / Procedures Referred By Wilver t Referred To Contact Procedures Breast Imaging US Outside Reference Aft, Nubia Pete MD PhD [address] [place] [address] Phone: tel: fax: Referral ID Status Reason Start Date Expiration Date Visits Re quested Visits Authorized [id number] Closed 10/27/2021 11/26/2022 1 1 Encounter Details Date Type Department Care Team (Late st Contact Info) Description 12/22/2014 12:05 AM [facility] Hospital Encounter [facility] [address] [place] [id number] Social History Tobacco Use Types Packs/Day Years [...] Master's degree (e.g., MA, MS, Melania, MEd, ACCOUNTANT SUPERVISOR, JAIME) 04/28/2021 Comments No Sex and Gender [...] Comments BREAST IMAGING US OUTSIDE REFERENCE Routine 12/22/2014 12:05 AM PEN OR PENCIL ASSEMBLY MACHINE OPERATOR documented in this encounter Results * Breast Imaging US Outside Reference (12/22/2014 12:05 AM PEN OR PENCIL ASSEMBLY MACHINE OPERATOR) Impressions [facility] - 10/27/2021 10:24 AM CDT These images are for Reference purposes only and have not been reviewed by [facility]. There will be no report generated by a [facility] Radiologist. Narrative [facility] - 10/27/2021 10:24 AM CDT EXAMINATION: Images For Reference Purposes Only us Nubia Evans MD PhD IMG MAMMO PROCEDURES Final Result [facility] documented in this encounter Visit Diagnoses Not on filedocumented in this encounter
--- OUTSIDE RECORDS SUMMARY | 2024-05-12 17:13 | XMS_ITS | Encounter Summary ---
Author Organization [facility] Healthcare Address [address] [place] [address] Care Team Providers Care Blood Bank Laboratory Technician Name Role Phone Unavailable Primary Care Provider Unavailabl e Reason for Visit * Diagnostic Imaging (Routine) - Closed Specialty Diagnoses / Procedures Referred By Wilver t Referred To Contact Procedures Breast Imaging Diagnostic Outside Reference Aft, Nubia Pete MD PhD [address] [place] [address] Phone: tel: fax: Referral ID Status Reason Start Date Expiration Date Visits Re quested Visits Authorized [id number] Closed 10/27/2021 11/26/2022 1 1 Encounter Details Date Type Department Care Team (Late st Contact Info) Description 12/22/2014 Hospital Encounter [facility] [address] [place] [phone] Social History Tobacco Use Types Packs/Day Years [...] Master's degree (e.g., MA, MS, Melania, MEd, ENVIRONMENTAL CONSTRUCTION ENGINEER, JAIME) 04/28/2021 Comments No Sex and Gender [...] BREAST IMAGING MG DIAGNOSTIC OUTSIDE REFERENCE Routine 12/22/2014 12:00 AM JAIL MANAGER documented in this encounter Results * Breast Imaging Diagnostic Outside Reference (12/22/2014 12:00 AM JAIL MANAGER) Impressions [facility] - 10/27/2021 10:24 AM CDT These images are for Reference purposes only and have not been reviewed by [facility] Radiology. There will be no report generated by a [facility] Radiologist. Narrative [facility] - 10/27/2021 10:24 AM CDT EXAMINATION: Images For Reference Purposes Only us Nubia Evans MD PhD IMG MAMMO PROCEDURES Final Result [facility] documented in this encounter Visit Diagnoses Not on filedocumented in this encounter
--- OUTSIDE RECORDS SUMMARY | 2024-05-12 17:13 | XMS_ITS | Encounter Summary ---
Author Organization [facility] Healthcare Address [address] [place] [address] Care Team Providers Care Supervisor [employer] Workers Name Role Phone Unavailable Primary Care Provider Unavailabl e Reason for Visit * Diagnostic Imaging (Routine) - Closed Specialty Diagnoses / Procedures Referred By Wilver t Referred To Contact Procedures Breast Imaging Screening Outside Reference Elana Chowdhury MD PhD [address] [facility] [place] [phone] [place] [address] Phone: tel: fax: Referral ID Status Reason Start Date Expiration Date Visits Re quested Visits Authorized [id number] Closed 10/12/2021 11/11/2022 1 1 Encounter Details Date Type Department Care Team (Late st Contact Info) Description 09/18/2018 Hospital Encounter [facility] [address] [place] [address] Social History Tobacco Use Types Packs/Day Years [...] Master's degree (e.g., MA, MS, Melania, MEd, LABEL OPERATOR, JAIME) 04/28/2021 Comments No Sex and [...] BREAST IMAGING MG SCREENING OUTSIDE REFERENCE Routine 09/18/2018 12:00 AM CDT documented in this encounter Results * Breast Imaging Screening Outside Reference (09/18/2018 12:00 AM CDT) Impressions [facility] - 10/12/2021 12:47 PM CDT These images are for Reference purposes only and have not been reviewed by [facility] Radiology. There will be no report generated by a [facility] Radiologist. Narrative [facility] - 10/12/2021 12:47 PM CDT EXAMINATION: Images For Reference Purposes Only Elana Chowdhury MD PhD IMG MAMMO PROCEDURES Final Result [facility] documented in this encounter Visit Diagnoses Not on filedocumented in this encounter
== END 2024-05-12 14:51 | disposition home or self-care (01) ==
LOC: ANHIMG 14:52
PROVIDERS: PCP Family Medicine
DX: M85.89 Other specified disorders of bone density and structure, multiple sites (principal); Z78.0 Asymptomatic menopausal state; R92.8 Other abnormal and inconclusive findings on diagnostic imaging of breast; N63.10 Unspecified lump in the right breast, unspecified quadrant; N63.20 Unspecified lump in the left breast, unspecified quadrant
CPT/HCPCS: 77080

== ENCOUNTER 2024-06-19 08:47 | Outpatient (CLI) | payer MEDICARE, SELFPAY ==
--- NOTE | ~2024-06-19 | US_ITS ---
US breast BI complete 06/19/2024 10:00 Indication: Follow-up bilateral likely benign breast cysts. Procedure: High-resolution complete bilateral breast ultrasound including all 4 quadrants in the suba reolar locations Comparison: Ultrasound dated 12/11/2023 Findings: Right breast: There are multiple simple and minimally complicated cysts of the right breast. At 12:00 , 4 cm from the nipple there is a round hypoechoic 1 cm mass without significant posterior features o r internal vascularity. There are low level internal echoes, likely complicated cysts. At 12:00, 2 cm from the nipple there is an oval hypoechoic 5 mm mass with parallel orientation, no posterior featur es and no internal vascularity. At 6:00, 3 cm from the nipple there is intramammary lymph node measur ing 7 mm. At 11:00, 4 cm from the nipple there is a new hypoechoic mass with antiparallel configurati on, low level internal echoes, slightly irregular lateral margins and no internal vascularity. There is posterior shadowing. Left breast: There are multiple simple and complicated cysts of the left breast. At 1:00, 2 cm from t he nipple there is a 3 cm cyst. At 5:00, 2 cm from the nipple there is a parallel oriented hypoechoic oval mass without posterior features or internal vascularity measuring 1 cm, not definitely seen on prior examination, likely benign. Impression: 1: Suspicious new right breast mass located 11:00, 4 cm from the nipple measuring 5 mm. Probable adriane gn left breast mass at 5:00, 2 cm from the nipple. Short-term follow-up left breast ultrasound recomm ended. 2: Ultrasound-guided right breast biopsy recommended for 5 mm mass at 11:00, 4 cm from the nipple. BI-RADS CATEGORY 4-SUSPICIOUS ABNORMALITY Reviewed, dictated and finalized at location A. Impression: 1: Suspicious new right breast mass located 11:00, 4 cm from the nipple measuri ng 5 mm. Probable benign left breast mass at 5:00, 2 cm from the nipple. Short- term follow-up left breast ultrasound recommended. 2: Ultrasound-guided right breast biopsy recommended for 5 mm mass at 11:00, 4 cm from the nipple. BI-RADS CATEGORY 4-SUSPICIOUS ABNORMALITY
== END 2024-06-19 08:48 | disposition home or self-care (01) ==
LOC: MICIMG 08:48
PROVIDERS: PCP Family Medicine; Visit Provider Family Medicine
DX: R92.8 Other abnormal and inconclusive findings on diagnostic imaging of breast (principal); N63.11 Unspecified lump in the right breast, upper outer quadrant; N63.23 Unspecified lump in the left breast, lower outer quadrant
CPT/HCPCS: 76641